=== PATIENT | female | born 1930 | race Caucasian/White ===

== ENCOUNTER → 2016-03-12 | Outpatient (CLI) | payer OTHER ==
[~2016-03-12] MED LIST: CEPH500C PO; GLUC1TAB94 PO; IBUP-1277 PO; LEVO100T PO
[2016-03-12 15:55] LABS: BASO % 0.6 %; BASO ABS # 0.06 K/uL (0-0.2); COMPLETE YES; HEMATOCRIT 37.6 % (37-47); IG% 0.2 %; LYMPH % 31.9 %; LYMPH ABS # 3.04 K/uL (1.2-3.4); MEAN CELL VOLUME 90.2 fL (80-100); MEAN CORPUSCULAR HEMOGLOBIN 31.2 pg (25-34); MEAN CORPUSCULAR HGB CONC 34.6 g/dl (32-36); MEAN PLATELET VOLUME 10.1 fL (7.4-10.4); MONO % 10.5 %; NEUT % 52.8 %; PLATELET COUNT 367 K/uL (130-400); RED BLOOD COUNT 4.17 M/uL (4.2-5.4); WHITE BLOOD COUNT 9.54 K/uL (4.8-10.8)
[2016-03-12 16:06] LABS: ESTIMATED AVERAGE GLUCOSE 111 mg/dl; HA1C FLAG Normal (Normal)
[2016-03-12 16:41] LABS: BLOOD UREA NITROGEN 29 mg/dl (7-18); BUN/CREATININE RATIO 26.7 (10-20); CALCIUM 9.2 mg/dl (8.5-10.1); CARBON DIOXIDE 26 mmol/L (21-32); CHLORIDE 100 mmol/L (98-107); GLUCOSE 71 mg/dl (70-99); POTASSIUM 4.6 mmol/L (3.5-5.1); SODIUM 135 mmol/L (136-145)
[2016-03-12 16:52] LABS: THYROID STIMULATING HORMONE 0.975 uIu/ml (0.300-4.500)
== END | disposition home or self-care (01) ==
LOC: C.LAB1850 14:24
PROVIDERS: ATTEND Internal Medicine
DX: E03.9 Hypothyroidism, unspecified (principal); R73.9 Hyperglycemia, unspecified

== ENCOUNTER 2016-11-02 13:12 | Emergency (ER) | payer OTHER ==
[~2016-11-02] VITALS: Ht 154.9 cm; Wt 46.0 kg
[2016-11-02 13:23] VITALS: TEMP 36.6; Ht 154.9 cm; Wt 46.0 kg
[2016-11-02] MEDS ORDERED: IBUP-1277 PO (13:33)
[2016-11-02] MEDS ORDERED: LEVO100T PO (13:33)
[2016-11-02] MEDS ORDERED: GLUC1TAB94 PO (13:33)
[2016-11-02] MEDS ORDERED: SODIUM CHLORIDE 0.9% 500ML 500 ML IV STA (13:51)
[2016-11-02 14:17] VITALS: O2SAT 97
--- NOTE | 2016-11-02 14:31 | EMERGENCY ROOM VISIT NOTE ---
History First contact with patient: 13:39 Chief Complaint: WEAKNESS Stated Complaint: WEAK LEGS, PROBLEMS WITH COORDINATION Nursing Triage Summary: triage note; pt to triage via wheelchair. pt reports she has been having increased falls and increased pain and weakness in bilat legs since last week. History of Present Illness The patient is a 86 year old female who presents to the Emergency Room with complaints of generalized weakness. She complains of an imbalance problem and weak legs. This has been coming on gradually for the past 6 years since her . Here today per family guidance because she has had 3 falls in the past few months, most recently on Wednesday. never hit her head; all related to "weakness in legs"; never passed out/no LOC No vertigo or dizziness, just "imbalance": Patient states that if she stands up without holding on to things she starts shaking and will be on the floor; right leg is worse than left; right gives out; imbalance is the major thing though Uses walker intermittently but since , has had to use walker 100%; legs were weak, knees were buckling; had a minor fall Wednesday; did not hit her head; walker had tipped and she fell on her backside. got into chair and felt ok; this was while she was holding on to walker. and leg gave out. Positives: occasional lightheaded spells (1-2/month), even while siting; resolves on its own; HTN (watches salt intake, diet, takes no meds as they make her more dizzy, one episode of nausea and vomiting on wednesday. HTN, Arthritis, and easy bruisability; Lifelong smoker; down to 1-2 cigs per day. Curvature of spine: scoliosis that has her lean to the left and forward; can't lift left shoulder Negatives: no discrepancies in one side of body vs the other; headaches, changes in appetite but does not eat a lot, no blood in her stool, no change in bowel habit. Reports no cardiac history. Review of Systems See below Constitutional: + weight loss (over 5-6 years has lost 15 pounds), + fatigue , No fever, No chills, No sweats, No weakness, No problem reported Eyes: + problem reported (cataracts) ENT: + sore throat, No hearing loss, No trouble swallowing Respiratory: No cough, No shortness of breath, No dyspnea on exertion, No dyspnea at rest Cardiovascular: No chest pain, No orthopnea, No PND, No edema, No palpitations Abdomen: + nausea, + vomiting, No pain, No diarrhea, No constipation, No GI bleeding Musculoskeletal: + problem reported (arthritis), No joint pain, No muscle pain, No swelling, No calf pain Genitourinary - Female: No dysuria, No urinary frequency, No urinary urgency , No urinary incontinence, No urinary retention, No hematuria, No dysmenorrhea, No menorrhagia, No metrorrhagia, No rash, No vaginal bleeding, No vaginal discharge, No vaginal itching, No vulvodynia, No , No problem reported Neurologic: + memory loss, + weakness, No numbness/tingling, No vertigo Hematologic / Lymphatic: + abnormal bleeding/bruising, + swollen lymph nodes Past Medical/Surgical History Medical Problems: (1) Arthritis (2) HTN (hypertension) Social History Smoking Status: Current Every Day Smoker Current/Historical Medications Scheduled Cephalexin Monohydrate (Keflex), 500 MG PO BID Ttlytlczwgq-Hytwjvhkimn-Kqslpd ([employer] Ad), 2 TAB PO BID Ibuprofen (Advil), 400 MG PO BID Levothyroxine Sodium (Synthroid), 100 MCG PO DAILY Physical Exam Vital Signs Date Time Temp Pulse Resp B/P (MAP) Pulse Ox O2 Delivery O2 Flow Rate FiO2 11/02/16 17:10 78 22 226/108 97 11/02/16 16:31 224/103 11/02/16 16:12 78 22 98 11/02/16 15:48 78 18 211/114 97 Room Air 11/02/16 15:48 211/114 11/02/16 14:42 79 19 11/02/16 14:18 73 11/02/16 14:17 97 Room Air 11/02/16 14:16 210/96 11/02/16 13:23 36.6 81 18 194/82 98 Room Air Physical Exam GENERAL: Awake, alert, well appearing, no distress HENT: Normocephalic, atraumatic. TM's normal. Oropharynx unremarkable. EYES: PERRL. EOMI. Normal conjunctiva. Sclera non-icteric. NECK: Supple. No nuchal rigidity. FROM. No JVD or bruit. RESPIRATORY: CTA CARDIAC: RRR. No murmur. ABDOMEN: Soft, non distended. No tenderness to palpation. No rebound or guarding. No masses. RECTAL: Deferred. MUSCULOSKELETAL: Unremarkable. No edema. No discoloration. Gross motor strength symmetric. NEURO: Cranial nerves 2-12 grossly intact. Normal sensorium. No sensory or motor deficits noted. Gait abnormal; unable to stand unassisted. Speech normal. No pronator drift. Positive rhomberg. SKIN: No rash or jaundice noted. LYMPH: No adenopathy. Medical Decision & Procedures Laboratory Results 11/02/16 14:20 Red Blood Count 4.08, Mean Corpuscular Volume 90.2, Mean Corpuscular Hemoglobin 31.6, Mean Corpuscular Hemoglobin Concent 35.1, Mean Platelet Volume 9.3, Neutrophils (%) (Auto) 60.8, Lymphocytes (%) (Auto) 21.0, Monocytes (%) (Auto) 14.6, Eosinophils (%) (Auto) 2.8, Basophils (%) (Auto) 0.5, Neutrophils # (Auto ) 6.41, Lymphocytes # (Auto) 2.21, Monocytes # (Auto) 1.54, Eosinophils # (Auto ) 0.30, Basophils # (Auto) 0.05 11/02/16 14:20 Test 11/02/16 14:20 11/02/16 15:00 White Blood Count 10.54 K/uL (4.8-10.8) Red Blood Count 4.08 M/uL (4.2-5.4) Hemoglobin 12.9 g/dL (12.0-16.0) Hematocrit 36.8 % (37-47) Mean Corpuscular Volume 90.2 fL (80-100) Mean Corpuscular Hemoglobin 31.6 pg (25-34) Mean Corpuscular Hemoglobin Concent 35.1 g/dl (32-36) Platelet Count 332 K/uL (130-400) Mean Platelet Volume 9.3 fL (7.4-10.4) Neutrophils (%) (Auto) 60.8 % Lymphocytes (%) (Auto) 21.0 % Monocytes (%) (Auto) 14.6 % Eosinophils (%) (Auto) 2.8 % Basophils (%) (Auto) 0.5 % Neutrophils # (Auto) 6.41 K/uL (1.4-6.5) Lymphocytes # (Auto) 2.21 K/uL (1.2-3.4) Monocytes # (Auto) 1.54 K/uL (0.11-0.59) Eosinophils # (Auto) 0.30 K/uL (0-0.5) Basophils # (Auto) 0.05 K/uL (0-0.2) RDW Standard Deviation 43.2 fL (36.4-46.3) RDW Coefficient of Variation 13.2 % (11.5-14.5) Immature Granulocyte % (Auto) 0.3 % Immature Granulocyte # (Auto) 0.03 K/uL (0.00-0.02) Prothrombin Time 10.5 SECONDS (9.0-12.0) Prothromb Time International Ratio 1.0 (0.9-1.1) Activated Partial Thromboplast Time 27.9 SECONDS (21.0-31.0) Partial Thromboplastin Ratio 1.1 Anion Gap 7.0 mmol/L (3-11) Est Creatinine Clear Calc Drug Dose 29.9 ml/min Estimated GFR () 59.5 Estimated GFR (Non- 51.3 BUN/Creatinine Ratio 27.7 (10-20) Calcium Level 9.0 mg/dl (8.5-10.1) Magnesium Level 2.1 mg/dl (1.8-2.4) Total Bilirubin 0.5 mg/dl (0.2-1) Direct Bilirubin 0.2 mg/dl (0-0.2) Aspartate Amino Transf (AST/SGOT) 30 U/L (15-37) Alanine Aminotransferase (ALT/SGPT) 16 U/L (12-78) Alkaline Phosphatase 90 U/L (45-117) Troponin I 0.026 ng/ml (0-0.045) Total Protein 7.7 gm/dl (6.4-8.2) Albumin 3.7 gm/dl (3.4-5.0) Lipase 173 U/L (73-393) Thyroid Stimulating Hormone (TSH) 0.696 uIu/ml (0.300-4.500) Urine Color YELLOW Urine Appearance CLOUDY (CLEAR) Urine pH 6.0 (4.5-7.5) Urine Specific [place] 1.011 (1.000-1.030) Urine Protein NEG (NEG) Urine Glucose (UA) NEG (NEG) Urine Ketones NEG (NEG) Urine Occult Blood 1+ (NEG) Urine Nitrite POS (NEG) Urine Bilirubin NEG (NEG) Urine Urobilinogen NEG (NEG) Urine Leukocyte Esterase LARGE (NEG) Urine WBC (Auto) >30 /hpf (0-5) Urine RBC (Auto) 0-4 /hpf (0-4) Urine Hyaline Casts (Auto) 0 /lpf (0-5) Urine Epithelial Cells (Auto) 10-20 /lpf (0-5) Urine Bacteria (Auto) 4+ (NEG) Medications Administered Medications (Trade) Dose Ordered Sig/Melchor Route Start Time Stop Time Status Last Admin Dose Admin Sodium Chloride 500 ml @ 500 mls/hr Q1H STAT IV 11/02/16 13:51 11/02/16 14:50 DC 11/02/16 13:35 500 MLS/HR Ceftriaxone Sodium (Rocephin Inj) 1 gm NOW STAT IV 11/02/16 15:07 11/02/16 15:08 DC 11/02/16 15:46 1 GM ECG Indication: weakness Rhythm: normal sinus, sinus rhythm Findings: no acute ischemic change Comparison ECG Date: no prior available ED Course 1400: full h&p performed by myself 1430: Discussed case with Dr. Magaña 1445: Dr. Magaña saw patient and performed own h&p 1507: Nurse reported UA came back grossly positive; sample sent for culture; patient given rocephin for UTI 1630: Discussed scan results with patient and her son; Patient would not like to pursue option of being admitted to the hospital and is not keen on going to [facility]. 1640: Discussed case with Case Management; discussed CM calling PCP, Dr. Aguirre , for referral for outpatient rehabilitation. 1700: Patient cleared for discharge Medical Decision Prior records/ancillary studies reviewed and summarized above. Nursing notes reviewed. Additional history obtained from patient and family. The patient's history was concerning for generalized weakness. Differential diagnosis: Etiologies such as metabolic, infection, hypo/hyperglycemia, electrolyte abnormalities, cardiac sources, intracerebral event, toxicologic, neurologic, as well as others were entertained. Physical examination: As above. ER treatment provided: IV Lock Ceftriaxone given for UTI. On reassessment the patient felt better and would like to go home. Advised patient that we recommend inpatient rehabilitation services; patient strongly declines and would prefer outpatient rehabilitation. Advised family that she should require close monitoring until she can be evaluated by rehabilitation services. Diagnostics interpretation by me: ECG: Normal sinus rhythm The labs revealed a UTI. Imaging studies: CXR: CHEST ONE VIEW PORTABLE HISTORY: 86 years-old Female weakness acute weakness. Initial exam. COMPARISON: None available. TECHNIQUE: Portable upright AP view of the chest. FINDINGS: Cardiac silhouette is within normal limits. There is atherosclerosis of the aorta. There is no pneumothorax or pleural effusion. Multifocal bronchial wall thickening is noted in addition to coarsened interstitial markings greatest within the midlung zones and lung bases. No lobar airspace consolidation identified. The bones are grossly intact. Remote appearing impaction deformity of the left humeral head is seen. IMPRESSION: 1. Multifocal bronchial wall thickening with interstitial opacities, greatest within the lung bases and midlung zones suggests bronchitis/pneumonitis or chronic changes. No comparison is available at time of the dictation. 2. No lobar airspace consolidation. Head CT: FINDINGS: No acute intracranial hemorrhage, midline shift, mass, large territorial ischemia or abnormal extra-axial collection. There is moderate atrophy with ex vacuo ventriculomegaly. Multifocal areas of low-attenuation are seen within the subcortical, deep and periventricular white matter suggesting advanced chronic microvascular ischemic changes. Focal areas of low attenuation within the lentiform nuclei and right caudate nucleus suggest remote lacunar infarctions. The calvarium is intact. The mastoid air cells, and middle ear cavities are clear. Mild mucosal thickening is seen within the sphenoid and ethmoid sinuses. Soft tissues are unremarkable. Orbits are symmetric. IMPRESSION: 1. No acute intracranial hemorrhage, midline shift or territorial ischemia. 2. Atrophy with advanced chronic microvascular ischemic changes. Focal areas of low attenuation within the basal ganglia suggest remote lacunar infarctions. By the evaluation outlined above emergent etiologies such as infection, electrolyte abnormalities, cardiac sources, intracerebral event, toxologic, neurologic, abnormalities blood glucose, metabolic, as well as others were deemed relatively unlikely. The patient and family were informed about the findings as listed above. All questions were answered and she was very pleased with the treatment. Return instructions were outlined and the patient was discharged in stable condition. Outpatient prescription management: Keflex 500 mg BID x 7 days Referral: The patient was referred back to Dr. Aguirre, primary care physician for follow- up in 2 to 3 days for a recheck of the current condition. Medication Reconcilliation Current Medication List: was personally reviewed by me Blood Pressure Screening Patient's blood pressure: Elevated blood pressure Impression Primary Impression: Weakness Additional Impression: UTI (urinary tract infection) Departure Information Dispostion Home / Self-Care Condition FAIR Prescriptions Cephalexin Monohydrate (Keflex) 500 Mg Cap 500 MG PO BID for 7 Days, #14 CAP Prov: Fartun Buckner M.D. 11/02/16 Referrals Artur Aguirre M.D. (PCP) Patient Instructions My [facility] Additional Instructions URINARY TRACT INFECTION INSTRUCTIONS: Cephalexin (keflex) 500mg: Take one pill twice daily for 7 days for your urine infection. All antibiotics can cause diarrhea. If this occurs and you feel worse or it does not resolve in 1-2 days follow up with your doctor or return to the Emergency Department as this could be signs of serious underlying problems. Any medication can cause an allergic reaction, stop the pills immediately and return to the ER for rash, hives, breathing difficulties, or swelling. Read all the package inserts or medication information paperwork provided. If you have any questions or concerns call your primary provider, pharmacist or the ER for assistance. Rest and drink plenty of fluids. Continue current medications. Return to the ER immediately for worsening or persistent abdominal pain, vomiting, fevers, back or flank pain, worsening of your condition, or as needed. Follow up with your primary physician within 2-3 days for a recheck of the current condition; We recommend outpatient rehabilitation services. The shoe parts caser from the hospital will discuss this with your physician's office tomorrow (Wednesday) and they will be in touch with you. Resident Tracking Resident Involvement: Resident Care Provided Care Provided: Adult ED Problem Qualifiers Additional Impression: UTI (urinary tract infection) Urinary tract infection type: site unspecified Hematuria presence: without hematuria Qualified Codes: N39.0 - Urinary tract infection, site not specified
[2016-11-02 14:35] LABS: BASO % 0.5 %; BASO ABS # 0.05 K/uL (0-0.2); COMPLETE YES; EOS % 2.8 %; HEMATOCRIT 36.8 % (37-47); IG% 0.3 %; LYMPH ABS # 2.21 K/uL (1.2-3.4); MEAN CELL VOLUME 90.2 fL (80-100); MEAN CORPUSCULAR HEMOGLOBIN 31.6 pg (25-34); MEAN CORPUSCULAR HGB CONC 35.1 g/dl (32-36); MEAN PLATELET VOLUME 9.3 fL (7.4-10.4); MONO % 14.6 %; NEUT % 60.8 %; PLATELET COUNT 332 K/uL (130-400); RED BLOOD COUNT 4.08 M/uL (4.2-5.4); WHITE BLOOD COUNT 10.54 K/uL (4.8-10.8)
[2016-11-02 14:51] LABS: BUN/CREATININE RATIO 27.7 (10-20); MAGNESIUM 2.1 mg/dl (1.8-2.4); POTASSIUM 3.7 mmol/L (3.5-5.1)
[2016-11-02 14:54] LABS: PARTIAL THROMBOPLASTIN RATIO 1.1; PROTHROMBIN TIME (PATIENT) 10.5 SECONDS (9.0-12.0)
[2016-11-02 15:02] LABS: THYROID STIMULATING HORMONE 0.696 uIu/ml (0.300-4.500)
[2016-11-02] MEDS ORDERED: CEFTRIAXONE SOD INJ 1 GM ADDVIAL IV STA (15:07)
--- NOTE | 2016-11-02 15:10 | DIAGNOSTIC IMAGING REPORT ---
HEAD WITHOUT CONTRAST (CT) CLINICAL HISTORY: 86 years-old Female with generalized weakness, b/l LEs worse. Acute generalized weakness. Initial exam. TECHNIQUE: Multiple axial CT images of the head were obtained without contrast. A dose lowering technique was utilized adhering to the principles of ALARA. CT DOSE: 655.73 mGy.cm COMPARISON: None. FINDINGS: No acute intracranial hemorrhage, midline shift, mass, large territorial ischemia or abnormal extra-axial collection. There is moderate atrophy with ex vacuo ventriculomegaly. Multifocal areas of low-attenuation are seen within the subcortical, deep and periventricular white matter suggesting advanced chronic microvascular ischemic changes. Focal areas of low attenuation within the lentiform nuclei and right caudate nucleus suggest remote lacunar infarctions. The calvarium is intact. The mastoid air cells, and middle ear cavities are clear. Mild mucosal thickening is seen within the sphenoid and ethmoid sinuses. Soft tissues are unremarkable. Orbits are symmetric. IMPRESSION: 1. No acute intracranial hemorrhage, midline shift or territorial ischemia. 2. Atrophy with advanced chronic microvascular ischemic changes. Focal areas of low attenuation within the basal ganglia suggest remote lacunar infarctions. The above report was generated using voice recognition software. It may contain grammatical, syntax or spelling errors. Electronically signed by: Kong Song M.D. 11/02/2016 3:08 PM Dictated Date/Time: 11/02/2016 3:05 PM
[2016-11-02 15:29] LABS: URINE APPEARANCE CLOUDY (CLEAR); URINE BILIRUBIN NEG (NEG); URINE COLOR YELLOW; URINE NITRITE POS (NEG); URINE SPECIFIC GRAVITY 1.011 (1.000-1.030); UROBILINOGEN NEG (NEG)
[2016-11-02 15:31] LABS: MANUAL MICROSCOPIC REQUIRED? NO; REVIEW REQ? NO
--- NOTE | 2016-11-02 15:58 | DIAGNOSTIC IMAGING REPORT ---
CHEST ONE VIEW PORTABLE HISTORY: 86 years-old Female weakness acute weakness. Initial exam. COMPARISON: None available. TECHNIQUE: Portable upright AP view of the chest. FINDINGS: Cardiac silhouette is within normal limits. There is atherosclerosis of the aorta. There is no pneumothorax or pleural effusion. Multifocal bronchial wall thickening is noted in addition to coarsened interstitial markings greatest within the midlung zones and lung bases. No lobar airspace consolidation identified. The bones are grossly intact. Remote appearing impaction deformity of the left humeral head is seen. IMPRESSION: 1. Multifocal bronchial wall thickening with interstitial opacities, greatest within the lung bases and midlung zones suggests bronchitis/pneumonitis or chronic changes. No comparison is available at time of the dictation. 2. No lobar airspace consolidation. The above report was generated using voice recognition software. It may contain grammatical, syntax or spelling errors. Electronically signed by: Kong Song M.D. 11/02/2016 3:57 PM Dictated Date/Time: 11/02/2016 3:54 PM
[2016-11-02] MEDS ORDERED: CEPH500C PO (16:57)
--- NOTE | 2016-11-02 17:06 | EMERGENCY ROOM VISIT NOTE ---
History Report prepared by Maryse: Kishore Russell Under the Supervision of: Dr. Isaiah Magaña M.D. First contact with patient: 13:30 Chief Complaint: WEAKNESS Stated Complaint: WEAK LEGS, PROBLEMS WITH COORDINATION Nursing Triage Summary: triage note; pt to triage via wheelchair. pt reports she has been having increased falls and increased pain and weakness in bilat legs since last week. History of Present Illness The patient is a 86 year old white female with a past medical history of HTN, and arthritis who presents to the ED with a cc of worsening bilateral leg weakness beginning six years ago. Positive lightheaded spells which resolve on their own. Has been having problems with balance and has been falling recently due to her legs giving out. Feels that her right leg is weaker than her left. Uses a walker at home occasionally, but has had to use it exclusively recently. She has not hit her head or lost consciousness during any of her falls. Has not passed out, all falls have been due to leg weakness. Her most recent fall was yesterday. States that she will shake if she tries to stand without her walker. Negatives: chest pain, SOB, headaches, changes in appetite, blood in her stool, change in bowel habit. Patient does not take medication for her HTN as they make her feel dizzy. One episode of nausea and vomiting two days ago. Weakness began about 6 years ago following the passing of her . Source of History: patient Onset: 6 years ago Position: leg (bilateral) Quality: other (weakness) Timing: worsening Associated Symptoms: No headache, No chest pain, No SOB, No hematochezia Note: Positive: Lightheaded spells. Review of Systems See HPI for pertinent positives and negatives. A total of ten systems were reviewed and were otherwise negative. Past Medical & Surgical Medical Problems: (1) Arthritis (2) HTN (hypertension) Family History No pertinent family history stated. Social History Smoking Status: Current Every Day Smoker Marital Status: Housing Status: lives with family Current/Historical Medications Scheduled Cephalexin Monohydrate (Keflex), 500 MG PO BID Jeudbvprdxq-Ftaqiparvea-Mayryj (Move Free [employer] Health Ad), 2 TAB PO BID Ibuprofen (Advil), 400 MG PO BID Levothyroxine Sodium (Synthroid), 100 MCG PO DAILY Allergies Coded Allergies: NSAIDs (Unverified Allergy, Severe, DIZZINESS, 11/02/16) Physical Exam Vital Signs Date Time Temp Pulse Resp B/P (MAP) Pulse Ox O2 Delivery O2 Flow Rate FiO2 11/02/16 17:10 78 22 226/108 97 11/02/16 16:31 224/103 11/02/16 16:12 78 22 98 11/02/16 15:48 78 18 211/114 97 Room Air 11/02/16 15:48 211/114 11/02/16 14:42 79 19 11/02/16 14:18 73 11/02/16 14:17 97 Room Air 11/02/16 14:16 210/96 11/02/16 13:23 36.6 81 18 194/82 98 Room Air Physical Exam GENERAL: Awake, alert, well-appearing, NAD HENT: Normocephalic, atraumatic. EYES: Normal conjunctiva. Sclera non-icteric. NECK: Supple. No nuchal rigidity. FROM. RESPIRATORY: CTAB, no rhonchi, wheezing, crackles CARDIAC: RRR, no MRG ABDOMEN: Soft, NTND, BS+ MSK: No chest wall TTP, no LE edema NEURO: GCS 15, CN 2-12 intact, moves all 4s on command. 5/5 UE/LE strength bilaterally. Good finger to nose. No dysmetria. No drift. Good heel to farmer. Gait not tested secondary to concern for possible fall. SKIN: No rash or jaundice noted. Medical Decision & Procedures ER Provider Diagnostic Interpretation: Radiology results as stated below per my review and radiologist interpretation: HEAD WITHOUT CONTRAST (CT) FINDINGS: No acute intracranial hemorrhage, midline shift, mass, large territorial ischemia or abnormal extra-axial collection. There is moderate atrophy with ex vacuo ventriculomegaly. Multifocal areas of low-attenuation are seen within the subcortical, deep and periventricular white matter suggesting advanced chronic microvascular ischemic changes. Focal areas of low attenuation within the lentiform nuclei and right caudate nucleus suggest remote lacunar infarctions. The calvarium is intact. The mastoid air cells, and middle ear cavities are clear. Mild mucosal thickening is seen within the sphenoid and ethmoid sinuses. Soft tissues are unremarkable. Orbits are symmetric. IMPRESSION: 1. No acute intracranial hemorrhage, midline shift or territorial ischemia. 2. Atrophy with advanced chronic microvascular ischemic changes. Focal areas of low attenuation within the basal ganglia suggest remote lacunar infarctions. The above report was generated using voice recognition software. It may contain grammatical, syntax or spelling errors. Electronically signed by: Kong Song M.D. CHEST ONE VIEW PORTABLE FINDINGS: Cardiac silhouette is within normal limits. There is atherosclerosis of the aorta. There is no pneumothorax or pleural effusion. Multifocal bronchial wall thickening is noted in addition to coarsened interstitial markings greatest within the midlung zones and lung bases. No lobar airspace consolidation identified. The bones are grossly intact. Remote appearing impaction deformity of the left humeral head is seen. IMPRESSION: 1. Multifocal bronchial wall thickening with interstitial opacities, greatest within the lung bases and midlung zones suggests bronchitis/pneumonitis or chronic changes. No comparison is available at time of the dictation. 2. No lobar airspace consolidation. The above report was generated using voice recognition software. It may contain grammatical, syntax or spelling errors. Electronically signed by: Kong Song M.D. Laboratory Results 11/02/16 14:20 Red Blood Count 4.08, Mean Corpuscular Volume 90.2, Mean Corpuscular Hemoglobin 31.6, Mean Corpuscular Hemoglobin Concent 35.1, Mean Platelet Volume 9.3, Neutrophils (%) (Auto) 60.8, Lymphocytes (%) (Auto) 21.0, Monocytes (%) (Auto) 14.6, Eosinophils (%) (Auto) 2.8, Basophils (%) (Auto) 0.5, Neutrophils # (Auto ) 6.41, Lymphocytes # (Auto) 2.21, Monocytes # (Auto) 1.54, Eosinophils # (Auto ) 0.30, Basophils # (Auto) 0.05 11/02/16 14:20 Test 11/02/16 14:20 11/02/16 15:00 White Blood Count 10.54 K/uL (4.8-10.8) Red Blood Count 4.08 M/uL (4.2-5.4) Hemoglobin 12.9 g/dL (12.0-16.0) Hematocrit 36.8 % (37-47) Mean Corpuscular Volume 90.2 fL (80-100) Mean Corpuscular Hemoglobin 31.6 pg (25-34) Mean Corpuscular Hemoglobin Concent 35.1 g/dl (32-36) Platelet Count 332 K/uL (130-400) Mean Platelet Volume 9.3 fL (7.4-10.4) Neutrophils (%) (Auto) 60.8 % Lymphocytes (%) (Auto) 21.0 % Monocytes (%) (Auto) 14.6 % Eosinophils (%) (Auto) 2.8 % Basophils (%) (Auto) 0.5 % Neutrophils # (Auto) 6.41 K/uL (1.4-6.5) Lymphocytes # (Auto) 2.21 K/uL (1.2-3.4) Monocytes # (Auto) 1.54 K/uL (0.11-0.59) Eosinophils # (Auto) 0.30 K/uL (0-0.5) Basophils # (Auto) 0.05 K/uL (0-0.2) RDW Standard Deviation 43.2 fL (36.4-46.3) RDW Coefficient of Variation 13.2 % (11.5-14.5) Immature Granulocyte % (Auto) 0.3 % Immature Granulocyte # (Auto) 0.03 K/uL (0.00-0.02) Prothrombin Time 10.5 SECONDS (9.0-12.0) Prothromb Time International Ratio 1.0 (0.9-1.1) Activated Partial Thromboplast Time 27.9 SECONDS (21.0-31.0) Partial Thromboplastin Ratio 1.1 Anion Gap 7.0 mmol/L (3-11) Est Creatinine Clear Calc Drug Dose 29.9 ml/min Estimated GFR () 59.5 Estimated GFR (Non- 51.3 BUN/Creatinine Ratio 27.7 (10-20) Calcium Level 9.0 mg/dl (8.5-10.1) Magnesium Level 2.1 mg/dl (1.8-2.4) Total Bilirubin 0.5 mg/dl (0.2-1) Direct Bilirubin 0.2 mg/dl (0-0.2) Aspartate Amino Transf (AST/SGOT) 30 U/L (15-37) Alanine Aminotransferase (ALT/SGPT) 16 U/L (12-78) Alkaline Phosphatase 90 U/L (45-117) Troponin I 0.026 ng/ml (0-0.045) Total Protein 7.7 gm/dl (6.4-8.2) Albumin 3.7 gm/dl (3.4-5.0) Lipase 173 U/L (73-393) Thyroid Stimulating Hormone (TSH) 0.696 uIu/ml (0.300-4.500) Urine Color YELLOW Urine Appearance CLOUDY (CLEAR) Urine pH 6.0 (4.5-7.5) Urine Specific [place] 1.011 (1.000-1.030) Urine Protein NEG (NEG) Urine Glucose (UA) NEG (NEG) Urine Ketones NEG (NEG) Urine Occult Blood 1+ (NEG) Urine Nitrite POS (NEG) Urine Bilirubin NEG (NEG) Urine Urobilinogen NEG (NEG) Urine Leukocyte Esterase LARGE (NEG) Urine WBC (Auto) >30 /hpf (0-5) Urine RBC (Auto) 0-4 /hpf (0-4) Urine Hyaline Casts (Auto) 0 /lpf (0-5) Urine Epithelial Cells (Auto) 10-20 /lpf (0-5) Urine Bacteria (Auto) 4+ (NEG) Laboratory results reviewed by me Medications Administered Medications (Trade) Dose Ordered Sig/Melchor Route Start Time Stop Time Status Last Admin Dose Admin Sodium Chloride 500 ml @ 500 mls/hr Q1H STAT IV 11/02/16 13:51 11/02/16 14:50 DC 11/02/16 13:35 500 MLS/HR Ceftriaxone Sodium (Rocephin Inj) 1 gm NOW STAT IV 11/02/16 15:07 11/02/16 15:08 DC 11/02/16 15:46 1 GM ECG Indication: weakness Rate (beats per minute): 69 Rhythm: normal sinus Findings: Q waves (isolated in lead 3), T-wave inversion (isolated in AVL), other (Normal intervals. Mild elevation in V1. No signs in contiguous leads. ) ED Course 1340: The patient was evaluated in room A11B. A complete history and physical exam was performed. 1351: Ordered Sodium Chloride 500 ml @ 500 mls/hr IV. 1507: Ordered Rocephin Inj 1 gm IV. 1650: I reevaluated the patient. Discussed results and discharge instructions: she verbalized understanding and agreement. The patient is ready for discharge. Medical Decision The patient is a 86 year old white female with a past medical history of HTN, and arthritis who presents to the ED with a cc of worsening bilateral leg weakness beginning six years ago. Differential diagnosis: Etiologies such as metabolic, infection, hypo/hyperglycemia, electrolyte abnormalities, cardiac sources, intracerebral event, toxicologic, neurologic, as well as others were entertained. Patient was seen and evaluated at the bedside after being seen by the resident. Patient is now exam is fairly unremarkable. Patient CN II through 12 intact and no dysmetria good finger to nose could heal to farmer and good upper and lower extremity strength. She does not complain of any vertiginous symptoms. Patient had had bouts of lightheadedness in the past. Of note patient did have a fall on Wednesday but she believes is secondary to some mild lower extremity weakness which contributed to gait unsteadiness. Patient had lab work that was completed. Patient's EKG was really unremarkable and no signs of acute ischemia. Patient had a negative troponin. The patient denied any chest pain or shortness of breath. She had a negative chest x-ray. Patient's blood work was also fairly unremarkable. Patient's UA did show signs of infection patient was empirically treated with a dose of Rocephin. Patient was feeling well. We discussed that the patient signs and symptoms are less concerning for stroke given the fact that her exam is very good in this may be more a concern of needing some additional rehabilitation given her lower extremity weakness and mild gait instability. We discussed options which included admission with PT and OT and possible rehabilitation tomorrow versus going home with subsequent rehabilitation. We also discussed that we could not rule out a stroke although this is less likely. Patient's CT was negative acute but did have some chronic ischemic changes. Patient stated that she does not want to stay in the hospital. Patient is of sound mind and family was also agreeable with this plan. We spoke with case management stated they would try to get ahold of her primary care physician in order to have her seen in clinic and arrange potential additional rehabilitation. Patient was agreeable with plan of care. Patient family are given strict follow-up, discharge, and return precautions. Patient ambulated with her walker. Patient discharged home. Medication Reconcilliation Current Medication List: was personally reviewed by me Blood Pressure Screening Patient's blood pressure: Elevated blood pressure Blood pressure disposition: Referred to PCP Impression Primary Impression: Weakness Additional Impression: UTI (urinary tract infection) Scribe Attestation The scribe's documentation has been prepared under my direction and personally reviewed by me in its entirety. I confirm that the note above accurately reflects all work, treatment, procedures, and medical decision making performed by me. Departure Information Dispostion Home / Self-Care Prescriptions Cephalexin Monohydrate (Keflex) 500 Mg Cap 500 MG PO BID for 7 Days, #14 CAP Prov: Fartun Buckner M.D. 11/02/16 Referrals Artur Aguirre M.D. (PCP) Forms HOME CARE DOCUMENTATION FORM, IMPORTANT VISIT INFORMATION Patient Instructions My [facility] Additional Instructions URINARY TRACT INFECTION INSTRUCTIONS: Cephalexin (keflex) 500mg: Take one pill twice daily for 7 days for your urine infection. All antibiotics can cause diarrhea. If this occurs and you feel worse or it does not resolve in 1-2 days follow up with your doctor or return to the Emergency Department as this could be signs of serious underlying problems. Any medication can cause an allergic reaction, stop the pills immediately and return to the ER for rash, hives, breathing difficulties, or swelling. Read all the package inserts or medication information paperwork provided. If you have any questions or concerns call your primary provider, pharmacist or the ER for assistance. Rest and drink plenty of fluids. Continue current medications. Return to the ER immediately for worsening or persistent abdominal pain, vomiting, fevers, back or flank pain, worsening of your condition, or as needed. Follow up with your primary physician within 2-3 days for a recheck of the current condition; We recommend outpatient rehabilitation services. The pillowcase cutter from the hospital will discuss this with your physician's office tomorrow (Wednesday) and they will be in touch with you. Problem Qualifiers Additional Impression: UTI (urinary tract infection) Urinary tract infection type: site unspecified Hematuria presence: without hematuria Qualified Codes: N39.0 - Urinary tract infection, site not specified
[2016-11-02 17:10] VITALS: BP 226/108; PULSE 78; O2SAT 97
--- NOTE | 2016-11-04 13:15 | Pharmacy Progress Note ---
ED Pharmacist Culture FollowUp Date of Service: Nov 04, 2016. Patient sent with cephalexin for UTI. Culture now with E. coli resistant to cephalexin (indicated by cefazolin resistance). CrCL ~25-30 mL/min Called patient. Left message requesting call back. Plan for when patient calls back/can be contacted Stop cephalexin. Cefdinir 300 mg po daily x 7 days (0 refill) Case discussed with Italo Hanna, who is the prescribing provider.
== END 2016-11-02 17:11 | disposition home or self-care (01) ==
LOC: C.EDB 13:14 → C.EDA 17:11
DX: R53.1 Weakness (principal); N39.0 Urinary tract infection, site not specified; I10 Essential (primary) hypertension; M19.90 Unspecified osteoarthritis, unspecified site; F17.210 Nicotine dependence, cigarettes, uncomplicated; Z79.899 Other long term (current) drug therapy

== ENCOUNTER → 2017-03-16 | Outpatient (CLI) | payer OTHER ==
[~2017-03-16] MED LIST changes: -CEPH500C PO
[2017-03-16 13:56] LABS: BASO % 0.7 %; BASO ABS # 0.06 K/uL (0-0.2); EOS % 3.8 %; EOS ABS # 0.32 K/uL (0-0.5); HEMATOCRIT 36.9 % (37-47); HEMOGLOBIN 12.2 g/dL (12.0-16.0); IG# 0.02 K/uL (0.00-0.02); LYMPH ABS # 1.45 K/uL (1.2-3.4); MEAN CELL VOLUME 93.2 fL (80-100); MEAN CORPUSCULAR HEMOGLOBIN 30.8 pg (25-34); MEAN CORPUSCULAR HGB CONC 33.1 g/dl (32-36); MONO % 9.3 %; MONO ABS # 0.79 K/uL (0.11-0.59); NEUT ABS # 5.87 K/uL (1.4-6.5); PLATELET COUNT 364 K/uL (130-400); RED CELL DISTRIBUTION WIDTH CV 13.8 % (11.5-14.5); RED CELL DISTRIBUTION WIDTH SD 47.1 fL (36.4-46.3); WHITE BLOOD COUNT 8.51 K/uL (4.8-10.8)
[2017-03-16 14:03] LABS: HEMOGLOBIN A1C 5.6 % (4.5-5.6)
[2017-03-16 14:45] LABS: BLOOD UREA NITROGEN 28 mg/dl (7-18); CALCIUM 9.1 mg/dl (8.5-10.1); CARBON DIOXIDE 24 mmol/L (21-32); CREATININE 1.22 mg/dl (0.60-1.20); GLUCOSE 110 mg/dl (70-99); POTASSIUM 4.7 mmol/L (3.5-5.1); SODIUM 131 mmol/L (136-145)
== END | disposition home or self-care (01) ==
LOC: C.LABBC 10:00
PROVIDERS: ATTEND Physician Assistant
DX: I10 Essential (primary) hypertension (principal)

== ENCOUNTER → 2017-03-30 | Outpatient (CLI) | payer OTHER ==
--- NOTE | 2017-03-30 13:44 | DIAGNOSTIC IMAGING REPORT ---
DUPLEX RENAL ARTERY CLINICAL HISTORY: 86 years-old Female presenting with I10 Hypertension. TECHNIQUE: Real-time grayscale and color and spectral Doppler ultrasound imaging of the kidneys was performed. COMPARISON: None. FINDINGS: Right kidney: Intrarenal resistive index 0.68. Normal intrarenal arterial waveforms. Renal artery patent with peak systolic velocity 120 cm/s. Left kidney: Examination limited by poor sonographic window. Intrarenal resistive index 0.64. Normal intrarenal arterial waveforms. Grossly patent left renal artery. Peak systolic velocity approximately 47 cm/s. Poor visualization of the left renal vein. Abdominal aorta: Patent. Peak systolic velocity 92 cm/s. Ratio of right renal artery PSV/aortic PSV: 1.3. Ratio of left renal artery PSV/aortic PSV: 0.51. Other: None. Reference ranges: Normal main renal artery peak systolic velocity less than 180 cm/s. Ratio of renal artery PSV to aortic PSV less than 3.5 equates to normal or less than 60% stenosis. IMPRESSION: 1. Slightly limited examination of the renal arteries. No gross evidence of renal artery stenosis. Limited evaluation of the left renal vein. Electronically signed by: Adam Plascencia M.D. 03/30/2017 1:43 PM Dictated Date/Time: 03/30/2017 1:37 PM
--- NOTE | 2017-03-30 13:47 | DIAGNOSTIC IMAGING REPORT ---
RENAL ULTRASOUND CLINICAL HISTORY: Hypertension. COMPARISON STUDY: None. TECHNIQUE: Sonography of the kidneys and the urinary bladder was performed. FINDINGS: The right kidney measures 9 cm in maximal dimension. The left measures approximately 8 cm however is partially obscured on this examination. There is no hydronephrosis. Renal echogenicity and cortical thickness are normal. Note is made of abnormal appearance of the gallbladder with apparent wall thickening and possible sludge. In addition, there is an adjacent hypoechoic abnormality within the liver. There may be enlarged razia hepatis lymph nodes. IMPRESSION: 1. No hydronephrosis. 2. Abnormal appearance of the gallbladder with possible wall thickening and sludge. Adjacent hypoechoic abnormality within the liver with possible razia hepatis lymphadenopathy. These findings raise the possibility of a neoplastic process with gallbladder mass. A follow-up three-phase CT of the liver is recommended. Electronically signed by: Nasim Sauer M.D. 03/30/2017 1:46 PM Dictated Date/Time: 03/30/2017 1:37 PM
== END | disposition home or self-care (01) ==
LOC: C.ULTR 11:36
PROVIDERS: ATTEND Internal Medicine
DX: I10 Essential (primary) hypertension (principal)

== ENCOUNTER → 2017-04-08 | Outpatient (CLI) | payer OTHER ==
[~2017-04-08] MED LIST changes: +OPTIRAY 320 IV PRN
--- NOTE | 2017-04-08 13:42 | DIAGNOSTIC IMAGING REPORT ---
CT SCAN OF THE ABDOMEN COMBO LIVER PROTOCOL CLINICAL HISTORY: Gallbladder mass. COMPARISON STUDY: Renal ultrasound dated 03/30/2017. TECHNIQUE: Before and following the IV administration of 119 cc of Optiray 320, CT scan of the abdomen is performed from the lung bases to the pelvic inlet utilizing the liver protocol. Images are reviewed in the axial, sagittal, and coronal planes. IV contrast was administered without complication. A dose lowering technique was utilized adhering to the principles of ALARA. CT DOSE: 394.34 mGycm FINDINGS: Lung bases: The heart is enlarged and without pericardial effusion. The coronary arteries are densely calcified. A fat-containing Bochdalek hernia is seen at the right lung base. Emphysema is noted. No airspace consolidation or pleural effusion is identified. There is a tiny hiatal hernia. Liver and gallbladder: The contrast-enhanced liver is normal in size, contour, and attenuation. There is no intrahepatic biliary ductal dilatation. There is gallbladder wall thickening seen near the fundal region. There is a hypervascular mass suggested within the adjacent hepatic parenchyma. This demonstrates arterial hypervascularity is seen on image #152, and the lesion measures at least 2.0 x 1.7 cm. An additional component of the lesion is suggested in the liver superior to the proximal gallbladder body/neck as seen on axial image #116. This measures at least 2.1 x 1.6 cm and these foci may be contiguous. This appears to show washout on the delayed phase images. No additional hepatic lesions are clearly identified. 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 The right hepatic artery is widely patent. The hepatic veins, portal veins, splenic vein, and superior mesenteric vein are patent. Spleen: Normal in size and attenuation. Pancreas: Grossly unremarkable. Adrenal glands: Unremarkable. Kidneys: The contrast enhanced kidneys are atrophic and without hydronephrosis. No renal calculi are identified on the unenhanced series. The kidneys enhance symmetrically. Abdominal vasculature: There is advanced atherosclerotic calcification, ectasia, and tortuosity of the abdominal aorta. There is a penetrating ulcer and focal dissection seen in the abdominal aorta on axial image #124 of the arterial phase series. 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 There is high-grade stenosis with near complete occlusion at the origin of the superior mesenteric artery seen on image #83. Inferior mesenteric arteries widely patent. Bowel: There is moderate colonic fecal retention. No evidence of bowel obstruction is seen. Peritoneum: There is no intraperitoneal free air or abdominal ascites. Lymphadenopathy: Enlarged lymph node is suspected the razia hepatis on image #111 measuring 2.1 x 1.6 cm. No additional pathologically enlarged lymph nodes are identified. Skeletal structures: The skeletal structures are osteopenic. There is moderate to advanced lumbosacral spondylosis and scoliosis. No lytic or blastic lesions are seen. IMPRESSION: 1. There is wall thickening seen involving the gallbladder near the fundal region. A mass lesion is seen involving the hepatic parenchyma adjacent to the fundus as well as superior to the gallbladder neck/body. This should be considered neoplasm until proven otherwise, possibly representing gallbladder carcinoma or versus a primary hepatic lesion such as hepatocellular carcinoma or cholangiocarcinoma. A benign process such as adenomyomatosis is considered unlikely. Tissue sampling will likely be required for definitive characterization and surgical consultation is advised. 2. No additional hepatic lesion is seen. 3. An enlarged lymph node is questioned in the razia hepatis and is concerning for harjit involvement. 4. 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 5. 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 6. Cardiomegaly and suspect emphysema. 7. Additional findings as above. Electronically signed by: Ata Taylor M.D. 04/08/2017 1:40 PM Dictated Date/Time: 04/08/2017 1:08 PM
== END | disposition home or self-care (01) ==
LOC: C.CTS 12:25
PROVIDERS: ATTEND Internal Medicine
DX: K82.8 Other specified diseases of gallbladder (principal); K76.89 Other specified diseases of liver; R59.0 Localized enlarged lymph nodes; K55.1 Chronic vascular disorders of intestine; I71.02 Dissection of abdominal aorta; I71.4 Abdominal aortic aneurysm, without rupture; I51.7 Cardiomegaly; J43.9 Emphysema, unspecified

== ENCOUNTER → 2017-04-13 | Outpatient (CLI) | payer OTHER ==
[~2017-04-13] MED LIST changes: -OPTIRAY 320 IV PRN
[2017-04-13 17:09] LABS: ALBUMIN 3.9 gm/dl (3.4-5.0); ALKALINE PHOSPHATASE 91 U/L (45-117); ALT/SGPT 29 U/L (12-78); AST/SGOT 34 U/L (15-37); TOTAL PROTEIN 7.9 gm/dl (6.4-8.2)
== END | disposition home or self-care (01) ==
LOC: C.LAB1850 15:34
PROVIDERS: ATTEND Internal Medicine
DX: K82.8 Other specified diseases of gallbladder (principal)

== ENCOUNTER → 2017-05-05 | Outpatient (CLI) | payer OTHER ==
[2017-05-05 16:48] LABS: BASO ABS # 0.09 K/uL (0-0.2); EOS % 6.7 %; EOS ABS # 0.59 K/uL (0-0.5); HEMATOCRIT 35.3 % (37-47); HEMOGLOBIN 11.8 g/dL (12.0-16.0); IG# 0.02 K/uL (0.00-0.02); LYMPH % 32.2 %; LYMPH ABS # 2.84 K/uL (1.2-3.4); MEAN CELL VOLUME 91.5 fL (80-100); MEAN CORPUSCULAR HEMOGLOBIN 30.6 pg (25-34); MEAN CORPUSCULAR HGB CONC 33.4 g/dl (32-36); MEAN PLATELET VOLUME 9.7 fL (7.4-10.4); MONO % 9.9 %; MONO ABS # 0.87 K/uL (0.11-0.59); NEUT ABS # 4.42 K/uL (1.4-6.5); PLATELET COUNT 375 K/uL (130-400); RED CELL DISTRIBUTION WIDTH CV 13.1 % (11.5-14.5); RED CELL DISTRIBUTION WIDTH SD 43.8 fL (36.4-46.3); WHITE BLOOD COUNT 8.83 K/uL (4.8-10.8)
[2017-05-05 17:01] LABS: ALBUMIN 3.9 gm/dl (3.4-5.0); ALKALINE PHOSPHATASE 87 U/L (45-117); ALT/SGPT 28 U/L (12-78); AST/SGOT 30 U/L (15-37); TOTAL PROTEIN 7.7 gm/dl (6.4-8.2)
== END | disposition home or self-care (01) ==
LOC: C.LABBC 13:46
PROVIDERS: ATTEND Internal Medicine
DX: E03.9 Hypothyroidism, unspecified (principal); I10 Essential (primary) hypertension; R73.9 Hyperglycemia, unspecified

== ENCOUNTER → 2017-06-25 | Outpatient (CLI) | payer OTHER ==
--- NOTE | 2017-06-25 16:25 | DIAGNOSTIC IMAGING REPORT ---
L FOOT MIN 3 VIEWS ROUTINE CLINICAL HISTORY: M79.672 pain COMPARISON: None. DISCUSSION: Nondisplaced cortical fracture mid aspect proximal phalanx first toe. Potential additional cortical fracture proximal phalanx second toe. Positioning is difficult due to the arthritic changes present. There is no evidence for soft tissue swelling. IMPRESSION: Cortical fracture proximal phalanx great toe and most likely proximal phalanx second toe. The above report was generated using voice recognition software. It may contain grammatical, syntax or spelling errors. Electronically signed by: Blu Jackson M.D. 06/25/2017 4:24 PM Dictated Date/Time: 06/25/2017 4:22 PM
== END | disposition home or self-care (01) ==
LOC: C.RAD1850 16:07
PROVIDERS: ATTEND Physician Assistant
DX: S92.412A Displaced fracture of proximal phalanx of left great toe, initial encounter for closed fracture (principal); X58.XXXA Exposure to other specified factors, initial encounter

== ENCOUNTER 2017-07-08 08:10 | Inpatient (IN) | payer OTHER ==
[~2017-07-08] VITALS: Ht 154.9 cm; Wt 52.0 kg
[2017-07-08] MEDS ORDERED: SODIUM CHLORIDE 0.9% 1000ML 1,000 ML IV SCH (08:13)
--- NOTE | 2017-07-08 08:16 | EMERGENCY ROOM VISIT NOTE ---
History Report prepared by Maryse: Goldy Renae Under the Supervision of: Dr. Jose Daniel Lazcano M.D. First contact with patient: 08:10 History of Present Illness The patient is an 86 year old female who presents to the Emergency Room with complaints of worsening, severe, weakness to her legs beginning yesterday. The patient states it is difficult to stand long enough to brush her teeth. She reports she has a history of arthritis, and she has pain in her knees. The patient notes she called EMS today because she could not get out of bed. She states she lives alone and is pending placement at [facility]. The patient reports she takes ibuprofen, lisinopril, and levothyroxine sodium. She denies taking blood thinner, fevers, abdominal pain, and shortness of breath. EMS states the family of the patient's color is not normal, and she is yellow. They report her blood sugar was 113. Source of History: patient, EMS Onset: yesterday Position: leg (bilateral) Symptom Intensity: severe Quality: other (weakness) Timing: worsening Associated Symptoms: No fevers, No SOB, No abdominal pain Note: Associated symptoms: yellow skin Review of Systems See HPI for pertinent positives & negatives. A total of 10 systems reviewed and were otherwise negative. Past Medical & Surgical Medical Problems: (1) Arthritis (2) HTN (hypertension) (3) LFTs abnormal (4) Weakness Family History Patient reports no known family medical history. Social History Marital Status: Housing Status: lives alone Occupation Status: retired Current/Historical Medications Scheduled Mrczdpcaywv-Qeiqqxbawdp-Eyxbuo (Move Free Joint Health Ad), 2 TAB PO BID Ibuprofen (Advil), 400 MG PO BID Levothyroxine Sodium (Synthroid), 100 MCG PO QAM Lisinopril (Zestril), 5 MG PO 1200 Allergies Coded Allergies: NSAIDs (Unverified Allergy, Severe, DIZZINESS, 11/02/16) Physical Exam Vital Signs Date Time Temp Pulse Resp B/P (MAP) Pulse Ox O2 Delivery O2 Flow Rate FiO2 07/08/17 10:53 66 16 150/82 99 Room Air 07/08/17 10:35 97 Room Air 07/08/17 09:38 67 16 156/77 07/08/17 08:48 70 16 131/60 97 Room Air 07/08/17 08:24 99 Room Air Non-Rebreather 07/08/17 08:22 72 07/08/17 08:19 36.4 72 16 166/107 99 Room Air Physical Exam GENERAL: Awake, alert, well-appearing, in no acute distress HENT: Normocephalic, atraumatic. Oropharynx unremarkable. EYES: Normal conjunctiva. Sclera icteric injected. NECK: Supple. No nuchal rigidity. FROM. No JVD. RESPIRATORY: Clear to auscultation. CARDIAC: Regular rate, normal rhythm. Extremities warm and well perfused. Pulses equal. ABDOMEN: Soft, non-distended. No tenderness to palpation. No rebound or guarding. No masses. RECTAL: Deferred. MUSCULOSKELETAL: Chest examination reveals no tenderness. The back is symmetrical on inspection without obvious abnormality. There is no CVA tenderness to palpation. No joint edema. LOWER EXTREMITIES: Calves are equal size bilaterally and non-tender. No edema. No discoloration. NEURO: Normal sensorium. No sensory or motor deficits noted. SKIN: No rash. Jaundice noted. Medical Decision & Procedures ER Provider Diagnostic Interpretation: Radiology results as stated below per my review and radiologist interpretation: ABDOMEN LIMITED (US) HISTORY: Jaundice Pt c/o jaundice, RUQ U/S. COMPARISON: None. FINDINGS: Pancreas: The pancreas demonstrates a normal echotexture. Liver: Uniform echogenicity. Distended intrahepatic ducts. Gallbladder: Gallbladder wall top limits of normal 3 mm. Small amount gallbladder sludge. CBD: 8 mm Right kidney: No hydronephrosis. IMPRESSION: 1. Dilatation of the biliary ductal system. 2. A small amount of gallbladder sludge. 3. Hypoechoic somewhat irregular density adjacent to the gallbladder fossa within the liver measuring 2.[address] or MRI/MRCP evaluation of the abdomen is suggested to exclude an obstructing process of the biliary ductal system as well as to evaluate the solitary liver lesion discussed above. The above report was generated using voice recognition software. It may contain grammatical, syntax or spelling errors. Electronically signed by: Blu Jackson M.D. 07/08/2017 10:41 AM Dictated Date/Time: 07/08/2017 10:[address] HEAD WITHOUT CONTRAST (CT) CLINICAL HISTORY: Stroke like symptoms. Weakness. COMPARISON STUDY: 11/02/2016 TECHNIQUE: Axial CT of the brain is performed from the vertex to the skull base. IV contrast was not administered for this examination. A dose lowering technique was utilized adhering to the principles of ALARA. CT DOSE: 537.48 mGy.cm FINDINGS: No intra or extra-axial mass lesions are visualized. There is no CT evidence of acute cortical infarction. There is no evidence of midline shift. There is no acute hemorrhage. No calvarial fractures are visualized. There are patchy white matter hypodensities likely on a small vessel basis. There is no evidence of pathologic ventricular dilatation. 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 There is an old lacunar infarct in the lentiform nucleus on the right. There is no evidence of acute sinusitis IMPRESSION: No acute intracranial findings Electronically signed by: Robbie Guillen M.D. 07/08/2017 9:25 AM Dictated Date/Time: 07/08/2017 9:23 AM CHEST ONE VIEW PORTABLE CLINICAL HISTORY: Stroke mental status change COMPARISON STUDY: 11/02/2016 FINDINGS: Lungs are considered clear. Mild emphysematous change. Severe degenerative change left shoulder with partial degenerative substance loss left humeral head. IMPRESSION: Chronic change. No acute process. The above report was generated using voice recognition software. It may contain grammatical, syntax or spelling errors. Electronically signed by: Blu Jackson M.D. 07/08/2017 8:38 AM Dictated Date/Time: 07/08/2017 8:37 AM Laboratory Results 07/08/17 08:30 Red Blood Count 3.48, Mean Corpuscular Volume 89.9, Mean Corpuscular Hemoglobin 30.7, Mean Corpuscular Hemoglobin Concent 34.2, Mean Platelet Volume 11.6, Neutrophils (%) (Auto) 65.3, Lymphocytes (%) (Auto) 16.1, Monocytes (%) (Auto) 10.7, Eosinophils (%) (Auto) 6.7, Basophils (%) (Auto) 1.1, Neutrophils # (Auto ) 4.91, Lymphocytes # (Auto) 1.21, Monocytes # (Auto) 0.80, Eosinophils # (Auto ) 0.50, Basophils # (Auto) 0.08 07/08/17 08:30 Test 07/08/17 08:13 07/08/17 08:30 07/08/17 08:37 07/08/17 08:56 White Blood Count 7.51 K/uL (4.8-10.8) Red Blood Count 3.48 M/uL (4.2-5.4) Hemoglobin 10.7 g/dL (12.0-16.0) Hematocrit 31.3 % (37-47) Mean Corpuscular Volume 89.9 fL (80-100) Mean Corpuscular Hemoglobin 30.7 pg (25-34) Mean Corpuscular Hemoglobin Concent 34.2 g/dl (32-36) Platelet Count 423 K/uL (130-400) Mean Platelet Volume 11.6 fL (7.4-10.4) Neutrophils (%) (Auto) 65.3 % Lymphocytes (%) (Auto) 16.1 % Monocytes (%) (Auto) 10.7 % Eosinophils (%) (Auto) 6.7 % Basophils (%) (Auto) 1.1 % Neutrophils # (Auto) 4.91 K/uL (1.4-6.5) Lymphocytes # (Auto) 1.21 K/uL (1.2-3.4) Monocytes # (Auto) 0.80 K/uL (0.11-0.59) Eosinophils # (Auto) 0.50 K/uL (0-0.5) Basophils # (Auto) 0.08 K/uL (0-0.2) RDW Standard Deviation 58.4 fL (36.4-46.3) RDW Coefficient of Variation 17.8 % (11.5-14.5) Immature Granulocyte % (Auto) 0.1 % Immature Granulocyte # (Auto) 0.01 K/uL (0.00-0.02) Prothrombin Time 10.7 SECONDS (9.0-12.0) Prothromb Time International Ratio 1.0 (0.9-1.1) Activated Partial Thromboplast Time 27.1 SECONDS (21.0-31.0) Partial Thromboplastin Ratio 1.0 Est Creatinine Clear Calc Drug Dose 26.3 ml/min Estimated GFR () 48.7 Estimated GFR (Non- 42.0 BUN/Creatinine Ratio 31.5 (10-20) Calcium Level 9.1 mg/dl (8.5-10.1) Magnesium Level 2.0 mg/dl (1.8-2.4) Total Bilirubin 13.9 mg/dl (0.2-1) Direct Bilirubin 11.4 mg/dl (0-0.2) Aspartate Amino Transf (AST/SGOT) 225 U/L (15-37) Alanine Aminotransferase (ALT/SGPT) 200 U/L (12-78) Alkaline Phosphatase 578 U/L (45-117) Total Creatine Kinase 58 U/L (26-192) Creatine Kinase MB 2.1 ng/ml (0.5-3.6) Creatine Kinase MB Ratio 3.6 (0-3.0) Troponin I < 0.015 ng/ml (0-0.045) Total Protein 7.4 gm/dl (6.4-8.2) Albumin 3.1 gm/dl (3.4-5.0) Bedside Hemoglobin 12.9 g/dl (12.0-16.0) Bedside Hematocrit 38 % (37-47) Bedside Sodium 136 mEq/L (135-144) Bedside Potassium 3.9 mEq/L (3.3-5.0) Bedside Chloride 104 mEq/L (101-112) Bedside Total CO2 19 mEq/l (24-31) Anion Gap 18.0 mmol/L (16-25) Bedside Blood Urea Nitrogen 36 mg/dl (7-18) Bedside Creatinine 1.2 mg/dl (0.6-1.3) Bedside Glucose (other) 98 mg/dl (70-99) Bedside Ionized Calcium (Lul) 1.22 mmol/l (1.12-1.32) Ammonia < 10.0 umol/L (11-32) Labs reviewed by ED physician. Medications Administered Medications (Trade) Dose Ordered Sig/Melchor Route Start Time Stop Time Status Last Admin Dose Admin Sodium Chloride 1,000 ml @ 50 mls/hr Q20H IV 07/08/17 08:13 08/07/17 08:12 07/08/17 08:13 50 MLS/HR Hydromorphone HCl (Dilaudid Inj) 0.25 mg NOW STAT IV 07/08/17 08:20 07/08/17 08:21 DC 07/08/17 08:44 0.25 MG Ondansetron HCl (Zofran Inj) 4 mg NOW STAT IV 07/08/17 08:20 07/08/17 08:21 DC 07/08/17 08:43 4 MG ECG Per My Interpretation Indication: weakness Rate (beats per minute): 73 Rhythm: sinus rhythm Findings: T-wave inversion (Lateral), other (No ST depression or elevation.) ED Course 0812: Past medical records reviewed. The patient was evaluated in room B04B. A complete history and physical examination was performed. 0813: Ordered Sodium Chloride 1000 ml @ 50 mls/hr IV 0820: Ordered Zofran 4mg IV, Dilaudid 0.25mg IV 0825: The patient's sons arrived, and I had an in-depth conversation. We discussed the patient's CT scan in April, and they note the patient wanted to wait and see how things went. They report the patient did not want invasive treatment, and she does not want surgery. The sons noted in the event the symptoms worsened, they wanted the patient to be comfortable. I offered to have a hospitalist evaluated and see if they could place her on hospice. They stated they would like to see how the test results are today to see the severity of the condition. I informed them I could not give them a definite date as to how long the patient has. 0834: The nurse asked me to come back to the patient's room. The sons requested I paged Dr. Aguirre. 0912: I discussed the patient's case with Elvi Falk PA-C from Dr. Aguirre's Office. She states Dr. Aguirre is on vacation in [place]. She reports I should obtain lab work and recommended hospice care because the patient does not want any intervention. 0937: I reevaluated the patient and updated the family of the consult. 1042: I discussed the patient's case with Dr. Arevalo, [facility] Hospitalist. The patient will be evaluated for further treatment and care. Medical Decision Differential diagnosis: Etiologies such as metabolic, infection, hypo/hyperglycemia, electrolyte abnormalities, cardiac sources, intracerebral event, toxicologic, neurologic, as well as others were entertained. This is an 86-year-old female that presents the emergency department jaundiced and complaining of weakness. The patient has a known mass on her gallbladder from April 2017. At that time the patient did not want any treatment, or any further workup of the mass. The family wishes me to discuss her case with her PCP. Her PCP is currently out of the country so I discussed it with her PA. The family also asked that I obtain laboratory work. Her direct bili was found to be extremely high. I discussed my findings with the patient and her family. The family wishes to respect the patient's wishes to have nothing done at this point. For this reason I did contact case management felt that the patient could be placed on hospice. The family is requesting that the patient be admitted for the hospice placement. After discussion with case management it was felt that the patient could be sent to [facility] as the patient does not wish to be admitted to the hospital however they do not have any beds available therefore the patient was admitted to the hospitalist service. Medication Reconcilliation Current Medication List: was personally reviewed by me Blood Pressure Screening Patient's blood pressure: Elevated blood pressure Blood pressure disposition: Referred to PCP Consults Time Called: 08 Consulting Physician: Elvi Falk PA-C from Dr. Aguirre's Office Returned Call: [phone] I discussed the patient's case with Elvi Falk PA-C from Dr. Aguirre's Office. She states Dr. Aguirre is on vacation in [facility]. She reports I should obtain lab work and recommended hospice care because the patient does not want any intervention. Additional Consults: Time Called: 09 Consulted Physician: Dr. Arevalo, [facility] Hospitalist Returned Call: [phone] Additional Comments: I discussed the patient's case with Dr. Arevalo, [facility] Hospitalist. The patient will be evaluated for further treatment and care. Impression Primary Impression: Gallbladder mass Scribe Attestation The scribe's documentation has been prepared under my direction and personally reviewed by me in its entirety. I confirm that the note above accurately reflects all work, treatment, procedures, and medical decision making performed by me. Departure Information Dispostion Still a Patient
[2017-07-08] MEDS ORDERED: HYDROmorphone INJ 0.5 MG/0.5 ML SYR IV STA (08:20)
[2017-07-08] MEDS ORDERED: ONDANSETRON INJ 2 MG/ML 2 ML VIAL IV STA (08:20)
[2017-07-08] MEDS ORDERED: LISI-729 PO (08:27)
--- NOTE | 2017-07-08 08:39 | DIAGNOSTIC IMAGING REPORT ---
CHEST ONE VIEW PORTABLE CLINICAL HISTORY: Stroke mental status change COMPARISON STUDY: 11/02/2016 FINDINGS: Lungs are considered clear. Mild emphysematous change. Severe degenerative change left shoulder with partial degenerative substance loss left humeral head. IMPRESSION: Chronic change. No acute process. The above report was generated using voice recognition software. It may contain grammatical, syntax or spelling errors. Electronically signed by: Blu Jackson M.D. 07/08/2017 8:38 AM Dictated Date/Time: 07/08/2017 8:37 AM
[2017-07-08 08:49] LABS: ISTAT CREATININE 1.2 mg/dl (0.6-1.3); ISTAT IONIZED CALCIUM 1.22 mmol/l (1.12-1.32); ISTAT POTASSIUM 3.9 mEq/L (3.3-5.0)
[2017-07-08 08:50] LABS: PTT PATIENT 27.1 SECONDS (21.0-31.0)
[2017-07-08 09:03] LABS: ALBUMIN 3.1 gm/dl (3.4-5.0); ALKALINE PHOSPHATASE 578 U/L (45-117); ALT/SGPT 200 U/L (12-78); AST/SGOT 225 U/L (15-37); BLOOD UREA NITROGEN 37 mg/dl (7-18); CALCIUM 9.1 mg/dl (8.5-10.1); CARBON DIOXIDE 19 mmol/L (21-32); CKMB 2.1 ng/ml (0.5-3.6); CREATININE 1.18 mg/dl (0.60-1.20); GLUCOSE 91 mg/dl (70-99); POTASSIUM 3.8 mmol/L (3.5-5.1); SODIUM 132 mmol/L (136-145); TOTAL PROTEIN 7.4 gm/dl (6.4-8.2)
--- NOTE | 2017-07-08 09:26 | DIAGNOSTIC IMAGING REPORT ---
CT HEAD WITHOUT CONTRAST (CT) CLINICAL HISTORY: Stroke like symptoms. Weakness. COMPARISON STUDY: 11/02/2016 TECHNIQUE: Axial CT of the brain is performed from the vertex to the skull base. IV contrast was not administered for this examination. A dose lowering technique was utilized adhering to the principles of ALARA. CT DOSE: 537.48 mGy.cm FINDINGS: No intra or extra-axial mass lesions are visualized. There is no CT evidence of acute cortical infarction. There is no evidence of midline shift. There is no acute hemorrhage. No calvarial fractures are visualized. There are patchy white matter hypodensities likely on a small vessel basis. There is no evidence of pathologic ventricular dilatation. 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 There is an old lacunar infarct in the lentiform nucleus on the right. There is no evidence of acute sinusitis IMPRESSION: No acute intracranial findings Electronically signed by: Robbie Guillen M.D. 07/08/2017 9:25 AM Dictated Date/Time: 07/08/2017 9:23 AM
[2017-07-08 10:09] LABS: BASO % 1.1 %; BASO ABS # 0.08 K/uL (0-0.2); EOS % 6.7 %; HEMATOCRIT 31.3 % (37-47); HEMOGLOBIN 10.7 g/dL (12.0-16.0); IG# 0.01 K/uL (0.00-0.02); LYMPH % 16.1 %; LYMPH ABS # 1.21 K/uL (1.2-3.4); MEAN CELL VOLUME 89.9 fL (80-100); MEAN CORPUSCULAR HEMOGLOBIN 30.7 pg (25-34); MEAN CORPUSCULAR HGB CONC 34.2 g/dl (32-36); MEAN PLATELET VOLUME 11.6 fL (7.4-10.4); MONO % 10.7 %; NEUT % 65.3 %; NEUT ABS # 4.91 K/uL (1.4-6.5); PLATELET COUNT 423 K/uL (130-400); RED CELL DISTRIBUTION WIDTH CV 17.8 % (11.5-14.5); RED CELL DISTRIBUTION WIDTH SD 58.4 fL (36.4-46.3); WHITE BLOOD COUNT 7.51 K/uL (4.8-10.8)
[2017-07-08 10:35] VITALS: O2SAT 97; Ht 154.9 cm; Wt 52.0 kg
--- NOTE | 2017-07-08 10:43 | DIAGNOSTIC IMAGING REPORT ---
ABDOMEN LIMITED (US) HISTORY: Jaundice Pt c/o jaundice, RUQ U/S. COMPARISON: None. FINDINGS: Pancreas: The pancreas demonstrates a normal echotexture. Liver: Uniform echogenicity. Distended intrahepatic ducts. Gallbladder: Gallbladder wall top limits of normal 3 mm. Small amount gallbladder sludge. CBD: 8 mm Right kidney: No hydronephrosis. IMPRESSION: 1. Dilatation of the biliary ductal system. 2. A small amount of gallbladder sludge. 3. Hypoechoic somewhat irregular density adjacent to the gallbladder fossa within the liver measuring 2.[address] or MRI/MRCP evaluation of the abdomen is suggested to exclude an obstructing process of the biliary ductal system as well as to evaluate the solitary liver lesion discussed above. The above report was generated using voice recognition software. It may contain grammatical, syntax or spelling errors. Electronically signed by: Blu Jackson M.D. 07/08/2017 10:41 AM Dictated Date/Time: 07/08/2017 10:39 AM
[2017-07-08] MEDS ORDERED: ALUMINUM/MAGNESIUM/SIMETH (MAALOX MAX) 30 ML UDC PO PRN (10:45)
[2017-07-08] MEDS ORDERED: POLYETHYLENE (MIRALAX) 17 GM PACK PO PRN (10:45)
[2017-07-08] MEDS ORDERED: ONDANSETRON INJ 2 MG/ML 2 ML VIAL IV PRN (10:45)
[2017-07-08] MEDS ORDERED: ACETAMINOPHEN 325 MG TAB PO PRN (10:45)
[2017-07-08] MEDS ORDERED: MAGNESIUM HYDROXIDE SUSP 30 ML UDC PO PRN (10:45)
[2017-07-08] MEDS ORDERED: IV FLUIDS COMPLETED PRN (11:00)
[2017-07-08 12:30] VITALS: BP 154/67; PULSE 68; TEMP 36.5
[2017-07-08] MEDS ORDERED: LORAZEPAM 2 MG/ML 1 ML VIAL IV PRN (12:30)
[2017-07-08] MEDS ORDERED: HYDROmorphone INJ 0.5 MG/0.5 ML SYR IV PRN (12:30)
--- NOTE | 2017-07-08 13:07 | History and Physical ---
History & Physical Date & Time of Service: July 08, 2017 at 12:46 Chief Complaint: Primary Care Physician: Artur Aguirre M.D. 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 At the time of diagnosis the pt decided she did not wish to pursue any related treatment. She had planned on inpt hospice services at [facility] eventually. Over the past few days she has become progressively weak and jaundiced. Today she was unable to stand up without assistance. She denies fevers, abdominal pain, nausea, vomiting or dysuria. She has been able to tolerate small amounts of food. As she lives alone, she presented to the hospital requesting inpt hospice services. There is currently no availability at her facility of choice so that we will provide her with services in the hospital until she is able to transfer to [facility]. Past Medical/Surgical History 1) HTN 2) Hypothyroid 3) Gallbladder mass - suspected hepatic or biliary CA - declines further workup or treatment 4) Osteoarthritis Family History Patient reports no known family medical history. Social History Smoking Status: Never Smoker Marital Status: Occupational Status: retired Allergies Coded Allergies: NSAIDs (Unverified Allergy, Severe, DIZZINESS, 11/02/16) Home Medications Scheduled Grlaphghnxg-Doeyrcgggfw-Vnwuim (Move Free Joint Health Ad), 2 TAB PO BID Ibuprofen (Advil), 400 MG PO BID Levothyroxine Sodium (Synthroid), 100 MCG PO QAM Lisinopril (Zestril), 5 MG PO 1200 Review of Systems Constitutional: + weight loss, + weakness, + fatigue, No fever, No chills, No sweats Eyes: No worsening of vision Respiratory: No cough, No sputum, No wheezing Cardiovascular: No chest pain, No orthopnea, No PND Abdomen: No pain, No nausea, No vomiting Musculoskeletal: No joint pain Genitourinary - Female: No dysuria, No urinary frequency Neurologic: + weakness, No memory loss, No paralysis Psychiatric: No depression symptoms Endocrine: + fatigue Hematologic / Lymphatic: No abnormal bleeding/bruising Integumentary: + problem reported (Jaundice) Physical Exam Vital Signs Date Time Temp Pulse Resp B/P (MAP) Pulse Ox O2 Delivery O2 Flow Rate FiO2 07/08/17 12:00 79 16 6 07/08/17 10:53 66 16 150/82 99 Room Air 07/08/17 10:35 97 Room Air 07/08/17 09:38 67 16 156/77 07/08/17 08:48 70 16 131/60 97 Room Air 07/08/17 08:24 99 Room Air Non-Rebreather 07/08/17 08:22 72 07/08/17 08:19 36.4 72 16 166/107 99 Room Air General Appearance: + thin, + pertinent finding (Decidedly jaundiced, elderly female in no distress - AAO x 3 ) Head: normocephalic Eyes: + abnormal sclerae exam (Icterus) ENT: normal ENT inspection Neck: supple, no JVD Respiratory/Chest: chest non-tender, lungs clear, normal breath sounds Cardiovascular: regular rate, rhythm, no edema, no gallop Abdomen/GI: normal bowel sounds, non tender, soft Back: normal inspection, no CVA tenderness Extremities/Musculoskelatal: normal inspection, no calf tenderness, normal capillary refill Neurologic/Psych: philosophy faculty member II-XII nml as tested, no motor/sensory deficits, alert, oriented x 3 Skin: + jaundice Diagnostics Laboratory Results Results Past 24 Hours Test 07/08/17 08:30 07/08/17 08:37 07/08/17 08:56 Range/Units White Blood Count 7.51 4.8-10.8 K/uL Red Blood Count 3.48 4.2-5.4 M/uL Hemoglobin 10.7 12.0-16.0 g/dL Hematocrit 31.3 37-47 % Mean Corpuscular Volume 89.9 80-100 fL Mean Corpuscular Hemoglobin 30.7 25-34 pg Mean Corpuscular Hemoglobin Concent 34.2 32-36 g/dl Platelet Count 423 130-400 K/uL Mean Platelet Volume 11.6 7.4-10.4 fL Neutrophils (%) (Auto) 65.3 % Lymphocytes (%) (Auto) 16.1 % Monocytes (%) (Auto) 10.7 % Eosinophils (%) (Auto) 6.7 % Basophils (%) (Auto) 1.1 % Neutrophils # (Auto) 4.91 1.4-6.5 K/uL Lymphocytes # (Auto) 1.21 1.2-3.4 K/uL Monocytes # (Auto) 0.80 0.11-0.59 K/uL Eosinophils # (Auto) 0.50 0-0.5 K/uL Basophils # (Auto) 0.08 0-0.2 K/uL RDW Standard Deviation 58.4 36.4-46.3 fL RDW Coefficient of Variation 17.8 11.5-14.5 % Immature Granulocyte % (Auto) 0.1 % Immature Granulocyte # (Auto) 0.01 0.00-0.02 K/uL Prothrombin Time 10.7 9.0-12.0 SECONDS Prothromb Time International Ratio 1.0 0.9-1.1 Activated Partial Thromboplast Time 27.1 21.0-31.0 SECONDS Partial Thromboplastin Ratio 1.0 Sodium Level 132 136-145 mmol/L Potassium Level 3.8 3.5-5.1 mmol/L Chloride Level 102 98-107 mmol/L Carbon Dioxide Level 19 21-32 mmol/L Anion Gap 11.0 18.0 16-25 mmol/L Blood Urea Nitrogen 37 7-18 mg/dl Creatinine 1.18 0.60-1.20 mg/dl Est Creatinine Clear Calc Drug Dose 26.3 ml/min Estimated GFR () 48.7 Estimated GFR (Non- 42.0 BUN/Creatinine Ratio 31.5 10-20 Random Glucose 91 70-99 mg/dl Calcium Level 9.1 8.5-10.1 mg/dl Magnesium Level 2.0 1.8-2.4 mg/dl Total Bilirubin 13.9 0.2-1 mg/dl Direct Bilirubin 11.4 0-0.2 mg/dl Aspartate Amino Transf (AST/SGOT) 225 15-37 U/L Alanine Aminotransferase (ALT/SGPT) 200 12-78 U/L Alkaline Phosphatase 578 45-117 U/L Total Creatine Kinase 58 26-192 U/L Creatine Kinase MB 2.1 0.5-3.6 ng/ml Creatine Kinase MB Ratio 3.6 0-3.0 Troponin I < 0.015 0-0.045 ng/ml Total Protein 7.4 6.4-8.2 gm/dl Albumin 3.1 3.4-5.0 gm/dl Bedside Hemoglobin 12.9 12.0-16.0 g/dl Bedside Hematocrit 38 37-47 % Bedside Sodium 136 135-144 mEq/L Bedside Potassium 3.9 3.3-5.0 mEq/L Bedside Chloride 104 101-112 mEq/L Bedside Total CO2 19 24-31 mEq/l Bedside Blood Urea Nitrogen 36 7-18 mg/dl Bedside Creatinine 1.2 0.6-1.3 mg/dl Bedside Glucose (other) 98 70-99 mg/dl Bedside Ionized Calcium (Lul) 1.22 1.12-1.32 mmol/l Ammonia < 10.0 11-32 umol/L Diagnostic Radiology US 07/08/17 1. Dilatation of the biliary ductal system. 2. A small amount of gallbladder sludge. 3. Hypoechoic somewhat irregular density adjacent to the gallbladder fossa within the liver measuring 2.[address] or MRI/MRCP evaluation of the abdomen is suggested to exclude an obstructing process of the biliary ductal system as well as to evaluate the solitary liver lesion discussed above. CT abdomen 04/2017 1. There is wall thickening seen involving the gallbladder near the fundal region. A mass lesion is seen involving the hepatic parenchyma adjacent to the fundus as well as superior to the gallbladder neck/body. This should be considered neoplasm until proven otherwise, possibly representing gallbladder carcinoma or versus a primary hepatic lesion such as hepatocellular carcinoma or cholangiocarcinoma. A benign process such as adenomyomatosis is considered unlikely. Tissue sampling will likely be required for definitive characterization and surgical consultation is advised. 2. No additional hepatic lesion is seen. 3. An enlarged lymph node is questioned in the razia hepatis and is concerning for harjit involvement. 4. 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 5. 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 6. Cardiomegaly and suspect emphysema. 7. Additional findings as above. 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 At the time of diagnosis the pt decided she did not wish to pursue any related treatment. She had planned on inpt hospice services at [facility] eventually. 1) Gallbladder mass and biliary obstruction - pt has declined treatment - requests inpt hospice at [facility] - admitted pending room availability. She is comfortable, awake and oriented at the time of admission. 2) HTN and Hypothyroidism - pt requests to remain on her scheduled meds for the time being - I have provided her with the option of discontinuation at her discretion. 3) Due to her hospice status, no additional labs or imaging will be performed. Above discussed in detail with pt and family at bedside Total time for this admit including review of labs, meds, imaging, records - discussion with pt, family, ER attending - 37 min Advanced Directives Existing Living Will: Yes Existing Power of Streetcar Operator: Yes Resuscitation Status VTE Prophylaxis Will order VTE Prophylaxis: Yes
[2017-07-08] MEDS: D5NSS + 20MEQ KCL 1,000 ML IV SCH ×2 (13:15→22:42)
[2017-07-08 15:09] VITALS: BP 126/68; PULSE 90; TEMP 36.9; O2SAT 96
[2017-07-08 15:54] VITALS: BP 158/76; PULSE 72; TEMP 36.5; O2SAT 100
[2017-07-08] MEDS ORDERED: HEPARIN SOD 5000 UNIT/0.5 ML CARP SQ SCH (18:00)
[2017-07-08] MEDS: IBUPROFEN 200 MG TAB PO SCH (20:49)
[2017-07-08 23:24] VITALS: BP 152/54; PULSE 66; TEMP 36.8; O2SAT 100
[2017-07-09] MEDS: LEVOTHYROXINE 100 MCG TAB PO SCH (05:53)
[2017-07-09 07:23] VITALS: BP 141/59; PULSE 61; TEMP 36.3; O2SAT 100
[2017-07-09] MEDS: IBUPROFEN 200 MG TAB PO SCH ×2 (08:39→20:39)
--- NOTE | 2017-07-09 10:16 | Hospitalist Progress Note ---
Hospitalist Progress Note Date of Service July 09, 2017. Subjective Pt evaluation today including: conversation w/ patient, conversation w/ family , conversation w/ performance consultant (Palliative care nurse practitioner) Patient denies nausea or abdominal pain, she is moving her bowels on a regular basis, no blood in her stool. She feels weak and is having difficulty walking, but otherwise has no complaints. Denies chest pain or shortness of breath. We discussed her medical conditions and prognosis. Patient understands that she has a mass obstructing her biliary tract, causing her to be jaundiced. She knows that without intervention, this would likely get worse. She does not want any evaluation or treatment. We discussed that her prognosis is poor without intervention; she is comfortable with her decision for comfort care and would like to proceed with going to a senior living and eventually transitioning to hospice care if she further deteriorates. Respiratory: No shortness of breath Cardiovascular: No chest pain Abdomen: No pain, No nausea, No vomiting, No diarrhea, No constipation, No GI bleeding Musculoskeletal: + joint pain (Left great toe pain after recent injury from fall) Female : No dysuria Skin: + color change All Other Systems: Reviewed and Negative Objective Vital Signs Date Time Temp Pulse Resp B/P (MAP) Pulse Ox O2 Delivery O2 Flow Rate FiO2 07/09/17 08:00 Room Air 07/09/17 07:23 36.3 61 20 141/59 (86) 100 07/09/17 04:00 Room Air 07/09/17 00:00 Room Air 07/08/17 23:24 36.8 66 20 152/54 (86) 100 Room Air 07/08/17 16:10 Room Air 07/08/17 15:54 36.5 72 16 158/76 (103) 100 Room Air 07/08/17 15:09 36.9 90 18 126/68 (87) 96 Room Air 07/08/17 12:30 36.5 68 20 154/67 (96) 07/08/17 12:00 79 16 6 07/08/17 10:53 66 16 150/82 99 Room Air 07/08/17 10:35 97 Room Air Physical Exam General Appearance: WD/WN, no apparent distress Eyes: + abnormal sclerae exam (Icterus) ENT: hearing grossly normal, pharynx normal Neck: supple, trachea midline Respiratory/Chest: lungs clear, normal breath sounds, no respiratory distress, no accessory muscle use Cardiovascular: regular rate, rhythm, no edema, no gallop, no murmur Abdomen: normal bowel sounds, non tender, soft, no organomegaly, no pulsatile mass Extremities: non-tender, normal inspection (Except hammertoes on the left foot) , no pedal edema, no calf tenderness Neurologic/Psychiatric: no motor/sensory deficits, alert, normal mood/affect, oriented x 3 Skin: warm/dry, no rash, + jaundice Assessment and Plan This patient is an 86 y/o F Hx HTN, hypothyroidism, mesenteric artery stenosis, OA, and history of lacunar CVA (seen on head CT), who was found to have a mass near the gallbladder and liver diagnosed 04/2017. At the time of that diagnosis the pt decided she did not wish to pursue any related further evaluation or treatment. She has now become progressively weak with falls and inability to walk. She denies nausea or vomiting, denies abdominal pain. She is tolerating p.o. She finally called for an ambulance when she could not walk at all and she lives alone. 1) obstructive painless jaundice/gallbladder mass- pt has declined further evaluation or treatment. She is clear that her focus is on comfort and quality of life for what remains. Her prognosis is probably less than 1 month to live at this point. -No need to check further labs -We will add hydroxyzine as needed for itching from jaundice -Ondansetron as needed for nausea -Has hydromorphone and ibuprofen as needed for pain -Is tolerating p.o. -DC IV fluids 2) HTN-has been hypertensive here which is acceptable given her desire for comfort and she is asymptomatic with it -Continue lisinopril 3) hypothyroidism - pt requests to remain on her scheduled meds for the time being -with the option of discontinuation at her discretion. Due to her hospice status, no additional labs or imaging will be performed. No SQ heparin for DVT prophylaxis for desire for comfort Disposition-to [facility] likely on Wednesday under skilled with eventual transition to hospice -Appreciate palliative care consultation Spent over 35 minutes discussing all issues with focus on palliative care discussion with both the patient and her 2 sons
--- NOTE | 2017-07-09 12:52 | Palliative Care Consultation ---
Consultation Date of Consultation: July 09, 2017. Requesting Physician: Dr. Jordan Attending Physician: Dr. Jordan Reason for Consultation: Goals of Care History of Present Illness This patient is an 86 y/o female who presented to the hospital from home for weakness and jaundice. 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 When the gallbladder mass was discovered, the patient made the decision that she did not want to pursue and additional diagnostic testing or treatments. The patient has expressed that she is happy with the life that she lived and understands that 'something will take her eventually'. Upon assessment, she is sitting in her bed comfortably, visibly jaundiced and cachectic and eating her lunch. LFT levels are as follows: [id number], ALT 200, Alk Phos 578. CODE STATUS was reconfirmed that she would like to be DNR/DNI. We discussed GOALS OF CARE and she was very clear that comfort was her main goal. We filled out a POLST at the bedside and she signed it. She mentioned her two sons that are fully on board with her decision for hospice and comfort measures. The plan is for the patient to remain inpatient through the weekend and will go to [facility] on Wednesday and transition to hospice support there. Thank you kindly for the referral for this antonia patient. We will follow accordingly. Past Medical/Surgical History Medical History: hypothyroidism HTN Gallbladder mass Social History Smoking Status: Never Smoker History of Alcohol Use: No Marital Status: Occupation Status: retired Review of Systems General: Patient denies pain HEENT: Pt denies CEBALLOS, dizziness (currently), visual changes CV: Pt denies CP, swelling, palpitations Resp: Pt denies SOB GI: Pt denies abdominal pain, N/V/D : Pt denies urinary changes Skin: Pt denies any rashes - yellowing skin Allergies Coded Allergies: NSAIDs (Unverified Allergy, Severe, DIZZINESS, 11/02/16) Medications Current Inpatient Medications Medications (Trade) Dose Ordered Sig/Melchor Route Start Time Stop Time Status Last Admin Dose Admin Acetaminophen (Tylenol Tab) 650 mg Q4H PRN PO 07/08/17 10:45 08/07/17 10:44 Al Hydrox/Mg Hydrox/Simethicone (Maalox Max Susp) 15 ml Q4H PRN PO 5/10/18 10:45 08/07/17 10:44 Magnesium Hydroxide (Milk Of Magnesia Susp) 30 ml Q6H PRN PO 07/08/17 10:45 08/07/17 10:44 Polyethylene (Miralax Powder Packet) 17 gm DAILY PRN PO 07/08/17 10:45 08/07/17 10:44 Ondansetron HCl (Zofran Inj) 4 mg Q6H PRN IV 07/08/17 10:45 08/07/17 10:44 Miscellaneous (Iv Fluids Completed) 1 ea PRN PRN N/A 07/08/17 11:00 07/08/18 10:59 Hydromorphone HCl (Dilaudid Inj) 0.25 mg Q3H PRN IV 07/08/17 12:30 07/22/17 12:29 Lorazepam (Ativan Inj) 0.5 mg Q8H PRN IV 07/08/17 12:30 08/07/17 12:29 Ibuprofen (Advil Tab) 400 mg BID PO 07/08/17 21:00 08/07/17 20:59 07/09/17 08:39 400 MG Levothyroxine Sodium (Synthroid Tab) 100 mcg DAILYBB PO 07/09/17 06:30 08/08/17 06:29 07/09/17 05:53 100 MCG Lisinopril (Zestril Tab) 5 mg DAILY@1200 PO 07/09/17 12:00 08/08/17 11:59 Lorazepam 0.5 mg/ Syringe 1 ml @ 1 mls/min Q8H PRN IV 07/08/17 13:00 08/07/17 12:59 Physical Exam Date Time Temp Pulse Resp B/P (MAP) Pulse Ox O2 Delivery O2 Flow Rate FiO2 07/09/17 08:00 Room Air 07/09/17 07:23 36.3 61 20 141/59 (86) 100 07/09/17 04:00 Room Air 07/09/17 00:00 Room Air 07/08/17 23:24 36.8 66 20 152/54 (86) 100 Room Air 07/08/17 16:10 Room Air 07/08/17 15:54 36.5 72 16 158/76 (103) 100 Room Air 07/08/17 15:09 36.9 90 18 126/68 (87) 96 Room Air General Appearance: no apparent distress (sitting at the bedside), + cachetic Neck: no JVD Respiratory: chest non-tender, lungs clear, normal breath sounds, no respiratory distress, no accessory muscle use Cardiovascular: regular rate, rhythm, no edema, no gallop, no JVD, no murmur Abdomen: normal bowel sounds, non tender, soft Musculoskeletal: normal strength (5/5 throughout) Neurologic/Psychiatric: oriented x 3 Skin: warm/dry Assessment & Plan Palliative Performance Scale: 50 % Palliative Care Encounter Goals of Care gallbladder mass with biliary obstruction jaundice Palliative Care Recommendations: -Continue supportive measures -GOALS OF CARE discussed with the patient at the bedside. Patient clear about proceeding with hospice services. -POLST form completed and placed on the chart -Await transfer on Wednesday Counseling and Coordination Total time spent 70 minutes with > 50% of that time spent reviewing the chart, assessing the patient, discussing GOALS OF CARE and completing a POLST form with the patient at the bedside
[2017-07-09] MEDS: LISINOPRIL 5 MG TAB PO SCH (13:32)
[2017-07-09 14:39] VITALS: BP 142/61; PULSE 63; TEMP 36.5; O2SAT 97
--- NOTE | 2017-07-09 19:47 | Medical Student: [facility] ---
Med Student Progress Note Date of Service July 09, 2017. Subjective Pt evaluation today including: conversation w/ patient, conversation w/ family , physical exam, lab review Pain: None currently PO Intake: Adequate Voiding: no voiding problems This is an 86-year-old female with a history of HTN, hypothyroidism, and an unspecified hepatic vs. gallbladder mass who presented to [facility] with jaundice and feeling weak. She says that when she woke this morning and walked to the bathroom, she began to feel lightheaded. She walked back to her bed and called 911. She reveals that she fell a couple weeks ago and has had 2 other episodes of lightheadedness. In Apr, she was found to have a gallbladder mass that was seen on ultrasound and was confirmed on CT of the abdomen. Her PCP, Dr. Aguirre, referred her to Dr. Vazquez who discussed further diagnostic studies and treatment plans. She refused the work-up and treatment, so the etiology of the mass is still unknown. She currently lives at home but was hoping to transition to [facility] for more support. In the emergency department she was found to have elevated LFTs consistent with biliary obstruction secondary to the mass. The topic of hospice was broached for the first time the ED, and it was decided to have the patient admitted for inpatient hospice services until a bed a [facility] opens on Wednesday. Currently, Ms. Reagan feels "decent." She states that she has no symptoms other than aching pain from her osteoarthritis. She feels that her current regimen of ibuprofen is sufficient for the pain for now. Her son Bassam and Aixa were at the bedside, and the whole family was open to meeting with palliative care to discuss hospice planning. Review of Systems Constitutional: No fever, No chills Respiratory: No shortness of breath Cardiac: No chest pain Abdomen: No pain, No nausea, No vomiting Musculoskeletal: + joint pain Female : No dysuria Objective Vital Signs Date Time Temp Pulse Resp B/P (MAP) Pulse Ox O2 Delivery O2 Flow Rate FiO2 07/09/17 16:00 Room Air 07/09/17 14:39 36.5 63 20 142/61 (88) 97 07/09/17 08:00 Room Air 07/09/17 07:23 36.3 61 20 141/59 (86) 100 07/09/17 04:00 Room Air 07/09/17 00:00 Room Air 07/08/17 23:24 36.8 66 20 152/54 (86) 100 Room Air Physical Exam General Appearance: no apparent distress (Pleasant woman sitting up in bed) Eyes: bilateral eyes pertinent finding (scleral icterus) ENT: TMs normal, pharynx normal Respiratory/Chest: lungs clear, normal breath sounds Cardiovascular: regular rate, rhythm, + systolic murmur Abdomen: normal bowel sounds, non tender, soft Extremities: no pedal edema, no calf tenderness Neurologic/Psychiatric: alert, normal mood/affect Skin: + jaundice Assessment and Plan Assessment and Plan: This is an 86-year-old female with a history of HTN, hypothyroidism, and an unspecified hepatic vs. gallbladder mass who presented to [facility] with jaundice and weakness who was found to have elevated LFTs and dilation of the biliary tree on ultrasound. Her current goals of care align with hospice, but she is unable to move to [facility] until Wednesday, so she will receive inpatient hospice until then. BILIARY VS. HEPATIC MASS She was found to have a mass near her gallbladder on ultrasound evaluating for renal artery stenosis. CT of the abdomen could only be interpreted as cholangiocarcinoma vs. gallbladder carcinoma vs. hepatocellular carcinoma. AFP was not elevated in April, but CEA was. The patient has refused further workup and treatment. She states she would prefer "quality over longevity." ACS was ruled out with negative troponins. There were no acute changes on CXR or CT of the head. On admission, she was jaundiced and had scleral icterus. Her LFTs were all elevated: AST of 225, ALT of 200, Tbili of 13.9, Dbili of 11.4, Alk phos of 578. These labs are consistent with an obstructive biliary process in setting of hepatobiliary mass. She had received 2L of IVF by the time of our interview. She appears euvolemic clinically and is hydrating well on her own. We will discontinue IVF. She is currently not having any pain or nausea associated with the mass. We will follow for symptom management and treat as appropriate. With consultation by palliative care, POLST was filled out. Palliative care also expanded discussion on hospice and pt still wants to move forward with this decision. OSTEOARTHRITIS She usually takes 200mg ibuprofen BID with an extra dose 1-2 times per week. She also takes Move Free. She is satisfied with her relief, so we will continue this regimen. HYPERTENSION - stable She is on her home dose of 5mg of lisinopril. She wishes to stay on this medicine. Her systolic blood pressure is elevated in the 140s. As her goals align with comfort measures only, we will not treat this any more aggressively. HYPOTHYROIDISM Continue home dose of 100 mcg. Her TSH was normal at 1.03 in Mar 2017. NORMOCYTIC ANEMIA Stable at 10.7. We are not evaluating in setting hospice care. DISPOSITION Discharge hospice at [facility] when bed opens on Wednesday. CODE STATUS DNR
[2017-07-09 22:53] VITALS: BP 189/79; PULSE 78; TEMP 36.8; O2SAT 99
[2017-07-09] MEDS ORDERED: hydrOXYzine HCL 10 MG TAB PO PRN (23:15)
[2017-07-10] MEDS: LORAZEPAM INJ 0.5 MG in SYRINGE 0.75 ML IV PRN ×2 (01:43→23:31)
[2017-07-10] MEDS: LEVOTHYROXINE 100 MCG TAB PO SCH (06:06)
[2017-07-10 07:08] VITALS: BP 153/67; PULSE 63; O2SAT 100
[2017-07-10] MEDS: IBUPROFEN 200 MG TAB PO SCH ×2 (07:44→20:21)
[2017-07-10] MEDS ORDERED: FEXOFENADINE HCL 60 MG TAB PO ONE (11:45)
[2017-07-10] MEDS: LISINOPRIL 5 MG TAB PO SCH (12:00)
--- NOTE | 2017-07-10 12:03 | Medical Student: [facility] ---
Med Student Progress Note Date of Service July 10, 2017. Subjective Pt evaluation today including: conversation w/ patient, physical exam Pain: None PO Intake: Adequate Voiding: no voiding problems This is an 86-year-old female with a history of HTN, hypothyroidism, and an unspecified hepatic vs. gallbladder mass who presented to [facility] with jaundice and weakness who was found to have elevated LFTs and dilation of the biliary tree on ultrasound. Her current goals of care align with hospice, but she is unable to move to [facility] until Wednesday, so she will receive inpatient hospice until then. Today she reports feeling better in that she has less pain and had a bowel movement. She denies abdominal pain, nausea, diarrhea, chest pain, shortness of breath. She admits to having itch overnight. She says she is good spirits considering the circumstances. She says she saw her go through a lot of testing and treatments at the end of his life and does not wish to have the same experience. Review of Systems Notes: see HPI Objective Vital Signs Date Time Temp Pulse Resp B/P (MAP) Pulse Ox O2 Delivery O2 Flow Rate FiO2 07/10/17 08:00 Room Air 07/10/17 07:08 63 18 153/67 (95) 100 Room Air 07/09/17 23:59 Room Air 07/09/17 22:53 36.8 78 18 189/79 (115) 99 Room Air 07/09/17 16:00 Room Air 07/09/17 14:39 36.5 63 20 142/61 (88) 97 Physical Exam General Appearance: WD/WN (sitting up in bed, reading the newspaper), no apparent distress Eyes: bilateral eyes pertinent finding (scleral icterus) ENT: TMs normal, pharynx normal Respiratory/Chest: normal breath sounds, + crackles (fine crackles at lung bases) Cardiovascular: regular rate, rhythm, no gallop, + systolic murmur (over mitral area) Abdomen: normal bowel sounds, non tender, soft Extremities: non-tender, no pedal edema, no calf tenderness Neurologic/Psychiatric: alert Skin: + jaundice Assessment and Plan Assessment and Plan: BILIARY VS. HEPATIC MASS Hospital Course: She was found to have a mass near her gallbladder on ultrasound evaluating for renal artery stenosis earlier this year. CT of the abdomen could only be interpreted as cholangiocarcinoma vs. gallbladder carcinoma vs. hepatocellular carcinoma. AFP was not elevated in April, but CEA was. The patient has refused further workup and treatment. On admission, she was jaundiced and had scleral icterus. Her LFTs were all elevated: AST of 225, ALT of 200, Tbili of 13.9, Dbili of 11.4, Alk phos of 578. These labs are consistent with an obstructive biliary process in setting of hepatobiliary mass. With consultation by palliative care, POLST was filled out. She states she would prefer "quality over longevity." Palliative care also expanded discussion on hospice and pt still wants to move forward with this decision. She is continues to deny having any pain or nausea associated with the mass. She does admit to itch, so we have added Chani BID with hydroxyzine available PRN. She denies other symptoms but we will treat as they arise. OSTEOARTHRITIS She usually takes 200mg ibuprofen BID with an extra dose 1-2 times per week. She also takes Move Free. She is satisfied with her relief, so we will continue this regimen. HYPERTENSION - stable She is on her home dose of 5mg of lisinopril. She wishes to stay on this medicine. Her systolic blood pressure is elevated in the 140s. As her goals align with comfort measures only, we will not treat this any more aggressively. HYPOTHYROIDISM - stable Continue home dose of 100 mcg. Her TSH was normal at 1.03 in Mar 2017. NORMOCYTIC ANEMIA Stable at 10.7. We are not evaluating in setting hospice care. DISPOSITION Discharge hospice at [facility] when bed opens on Wednesday. CODE STATUS DNR
[2017-07-10 15:31] VITALS: BP 135/67; PULSE 76; TEMP 36.6; O2SAT 98
[2017-07-10] MEDS ORDERED: COUGH DROP (SUGAR FREE) LOZ 24 LOZ/1 BOX LOZ PRN (16:00)
[2017-07-10] MEDS: FEXOFENADINE HCL 60 MG TAB PO SCH (20:20)
[2017-07-11 00:01] VITALS: BP 162/75; PULSE 72; TEMP 36.5; O2SAT 96
[2017-07-11] MEDS: LEVOTHYROXINE 100 MCG TAB PO SCH (04:59)
--- NOTE | 2017-07-11 05:41 | Progress Note ---
Subjective Date of Service: July 10, 2017. Subjective Pt evaluation today including: conversation w/ patient, physical exam, chart review, lab review Pain: denies PO Intake: fair Voiding: no voiding problems main complaint is that of generalized pruritis, worse at night denies any dyspnea, chest pain, abd pain Problem List Medical Problems: (1) UTI (urinary tract infection) Status: Acute (2) Weakness Status: Acute Review of Systems Constitutional: No fever, No chills Cardiac: No chest pain, No orthopnea Abdomen: No pain, No nausea, No vomiting, No diarrhea, No constipation, No GI bleeding Objective Vital Signs Date Time Temp Pulse Resp B/P (MAP) Pulse Ox O2 Delivery O2 Flow Rate FiO2 07/10/17 16:00 Room Air 07/10/17 15:31 36.6 76 18 135/67 (89) 98 Room Air 07/10/17 08:00 Room Air 07/10/17 07:08 63 18 153/67 (95) 100 Room Air 07/09/17 23:59 Room Air 07/09/17 22:53 36.8 78 18 189/79 (115) 99 Room Air Physical Exam General Appearance: no apparent distress, + thin Eyes: + abnormal sclerae exam (icterus) Neck: no JVD Respiratory/Chest: lungs clear, no respiratory distress, no accessory muscle use Cardiovascular: regular rate, rhythm, no gallop, no murmur Abdomen: normal bowel sounds, non tender, soft, no organomegaly Extremities: no pedal edema Neurologic/Psychiatric: alert, oriented x 3 Skin: + jaundice (down to the lower abdomen ) Assessment and Plan 86yo female - 1. 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 Will transfer to SNF early this week with hospice in place. Focus on symptom control at this time. 2. pruritis - 2nd to #1 - start latia 60mg BID. atarax prn. 3. hypothyroidism - synthroid. 4. HTN - acceptable control w/ lisinopril 5. DVT proph - in light of hospice status prophylaxis not indicated. dispo - SNF early this week Continued [facility] stay due to: ambulation difficulties [facility]charge planning[facility] facility
[2017-07-11 07:01] VITALS: BP 148/68; PULSE 64; TEMP 36.4; O2SAT 99
[2017-07-11] MEDS: FEXOFENADINE HCL 60 MG TAB PO SCH ×2 (08:44→21:03)
[2017-07-11] MEDS: IBUPROFEN 200 MG TAB PO SCH ×3 (08:44→22:29)
[2017-07-11 08:53] VITALS: O2SAT 99
[2017-07-11] MEDS: LISINOPRIL 5 MG TAB PO SCH (12:22)
[2017-07-11 15:11] VITALS: BP 144/72; PULSE 71; TEMP 36.4; O2SAT 99
--- NOTE | 2017-07-11 16:37 | Progress Note ---
Subjective Date of Service: July 11, 2017. Subjective Pt evaluation today including: conversation w/ patient, physical exam, chart review, lab review Pain: denies PO Intake: eating fair Voiding: no voiding problems pruritis somewhat better today offers no new complains slept decently last pm after receiving ativan IV Problem List Medical Problems: (1) UTI (urinary tract infection) Status: Acute (2) Weakness Status: Acute Review of Systems Constitutional: No fever, No chills Respiratory: No shortness of breath, No dyspnea on exertion Cardiac: No chest pain Abdomen: No pain, No nausea, No vomiting Objective Vital Signs Date Time Temp Pulse Resp B/P (MAP) Pulse Ox O2 Delivery O2 Flow Rate FiO2 07/11/17 15:11 36.4 71 16 144/72 (96) 99 Room Air 07/11/17 08:53 99 Room Air 07/11/17 07:01 36.4 64 20 148/68 (94) 99 07/11/17 00:01 36.5 72 18 162/75 (104) 96 Room Air 07/11/17 00:00 Room Air Physical Exam General Appearance: no apparent distress, + thin ENT: pharynx normal Neck: no JVD Respiratory/Chest: lungs clear, no respiratory distress, no accessory muscle use Cardiovascular: regular rate, rhythm, no gallop, no murmur Abdomen: normal bowel sounds, non tender, soft, no organomegaly Extremities: no pedal edema Neurologic/Psychiatric: alert, oriented x 3 Skin: + jaundice (from head to the legs (at least the knees, perhaps even lower than that)) Assessment and Plan 86yo female - 1. 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 Will transfer to SNF early this week with hospice in place. Focus on symptom control at this time. 2. pruritis - 2nd to #1 - cont latia 60mg BID along with atarax prn. 3. hypothyroidism - synthroid. 4. HTN - acceptable control w/ lisinopril 5. DVT proph - in light of hospice status prophylaxis not indicated. 6. insomnia/anxiety - d/c IV ativan, change such to PO in preparation for d/c to SNF 7. pain control - d/c IV dilaudid, change to PO oxycodone dispo - [facility], [facility], hopefully tomorrow Continued [facility] stay due to: ambulation difficulties Discharge planning: assisted facility
[2017-07-11] MEDS ORDERED: OXYCODONE HCL IR 5 MG TAB (IMMEDIATE RELEASE) PO PRN (16:45)
[2017-07-11] MEDS ORDERED: LORAZEPAM 0.5 MG TAB PO PRN (16:45)
[2017-07-12 00:09] VITALS: BP 149/71; PULSE 64; TEMP 36.4; O2SAT 97
[2017-07-12] MEDS: LEVOTHYROXINE 100 MCG TAB PO SCH (06:22)
[2017-07-12 07:17] VITALS: BP 152/67; PULSE 71; TEMP 36.4; O2SAT 100
[2017-07-12] MEDS: IBUPROFEN 200 MG TAB PO SCH (09:05)
[2017-07-12] MEDS: FEXOFENADINE HCL 60 MG TAB PO SCH (09:05)
[2017-07-12] MEDS: LISINOPRIL 5 MG TAB PO SCH (12:24)
[2017-07-12] MEDS ORDERED: ATR10 PO (12:51)
[2017-07-12] MEDS ORDERED: ONDA8TAB62 SL (12:51)
[2017-07-12] MEDS ORDERED: ATV5 PO (12:51)
[2017-07-12] MEDS ORDERED: ALL60 PO (12:51)
[2017-07-12] MEDS ORDERED: RXC5 PO (12:51)
[2017-07-12] MEDS ORDERED: CPC LOZ (12:51)
[2017-07-12 13:25] VITALS: BP 152/67; PULSE 71; TEMP 36.4; O2SAT 100
--- NOTE | 2017-07-12 13:50 | Discharge Instructions ---
Discharge Instructions Date of Service July 12, 2017. 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 Additional Information Patient informed of condition: Yes Advance Directives: Yes DNR: Yes Level of Care: Skilled Communicable Disease: No Prognosis: Deteriorating Oxygen at (LPM): none Woodard Catheter: No Instructions / Follow-Up Instructions / Follow-Up Patient is being admitted to [facility] and will receive Hospice services. Focus of care is comfort/palliation. Please contact the Hospice agency for any needs/concerns/new problems/ uncontrolled pain/etc. No follow-up is needed with any specific physician except for the Hospice agency. Current Hospital Diet Patient's current hospital diet: Regular Diet Discharge Diet Recommended Diet: Regular Diet Procedures Procedures Performed: ultrasound of abdomen Pending Studies Studies pending at discharge: no Physician Orders On Transfer Special Precautions: none Vital Signs: per routine POLST Discussion: with POLST completion Medical Emergencies . Who to Call and When: Medical Emergencies: If at any time you feel your situation is an emergency, please call 911 immediately. . Non-Emergent Contact Non-Emergency issues call your: Specialist (Hospice Nurse/physician) Call Non-Emergent contact if: you have a fever, your pain is not controlled, your pain is worsening, your pain is unusual for you, your pain is concerning you, you have any medication questions . . "Provider Documentation" section prepared by Artur Guadalupe. . Core Measure Problem Core Measures: None
== END 2017-07-12 14:50 | disposition hospice, inpatient (51) | DRG 435 ==
LOC: EDBD 08:10 → C.EDB 08:14 → C.MS2W 10:36 → ENRESERV 11:45 → EDBEDREQSVC 11:46 → C.MS2W 12:21 → UNDOADMOB 12:21 → C.MS2W 07-09 01:30 → OBSVTOIN 07-09 07:45
PROVIDERS: ADMIT Internal Medicine; ATTEND Internal Medicine
DX: C24.9 Malignant neoplasm of biliary tract, unspecified (principal); K83.1 Obstruction of bile duct; R17 Unspecified jaundice; L29.9 Pruritus, unspecified; I10 Essential (primary) hypertension; G47.00 Insomnia, unspecified; F41.9 Anxiety disorder, unspecified; Z51.5 Encounter for palliative care; Z66 Do not resuscitate; Z79.899 Other long term (current) drug therapy; Z88.6 Allergy status to analgesic agent